=== PATIENT | male | born 1930 | race Caucasian/White ===

== ENCOUNTER 2016-10-20 23:04 | Inpatient (IN) | payer MEDICARE, OTHER ==
[~2016-10-20] VITALS: Ht 177.8 cm; Wt 97.3 kg
--- NOTE | ~2016-10-20 | DS ---
PATIENT'S NAME: JESSICA KIM [facility] AGE: 86 Y [address] ROOM: [address] [place] [id number] LOCATION: TU ADMIT DATE: 10/21/2016 Discharge Summary DISCHARGE DATE: 10/25/2016 FAMILY PHYSICIAN: Gabe Reese MD ATTENDING PHYSICIAN: Bebeto Aguillon V FINAL DIAGNOSES: 1. Right periventricular cerebrovascular accident, subacute. 2. Acute encephalopathy. 3. Essential hypertension. 4. Dementia. For details of admission, please see the history and physical dictated by Dr. Aguillon. In short, the patient was transferred here from [place] with recurrent falls and for further evaluation. LABORATORY DATA: On admit, sodium 141, most prior to discharge 142; potassium on admission 3.8, most prior to discharge 3.7; BUN on admission was 21, discharge 15; creatinine 1.2 on admission, was 1 on discharge. Cholesterol was 179, triglycerides 398, HDL 27, LDL 74. Hemoglobin A1c was 7. Cardiac enzymes were negative. Most prior to discharge hemoglobin 13.9, hematocrit 40.6, platelet count 132, white blood cell count was 10.4. RADIOLOGIC DATA: CT scan of the head on admission showed advanced changes, no acute findings. There is a question of masslike opacity in the right anterior nasal passage. There is a question of a polyp. MRI of the brain did show that he had an acute right ventricular nonhemorrhagic ischemic event and then had severe cerebral atrophy. MRA of the brain was normal. MRA of the neck was normal and had a normal vertebrobasilar system. Echocardiogram showed that his ejection fraction was 55%. He had concentric LVH and mild mitral regurg. HOSPITAL COURSE: The patient was admitted and evaluated by Neurology for speech changes and frequent falls. At first, the thought was that this is probably a TIA. Initial CT scan was negative. An MRI was done and did show that there was periventricular infarct. The patient was seen by Dr. Elmore. The patient does have baseline dementia and had acute encephalopathy on top of that. He did gradually improve during the hospital stay. We did monitor his blood sugars and covered him with sliding scale insulin through which blood sugars were very well controlled. He was on Plavix and a statin and was working with therapy. We did need to restart his blood pressure medicine because his blood pressures were elevated, and he was restarted on his home losartan dose. It was felt that he was stable for discharge and Rehab did have a bed available for him on October 25. PATIENT'S NAME: JESSICA KIM [facility] AGE: 86 Y [address] ROOM: [address] [place], [place] [address] LOCATION: TU ADMIT DATE: 10/21/2016 Discharge Summary DISCHARGE DATE: 10/25/2016 FAMILY PHYSICIAN: Gabe Reese MD ATTENDING PHYSICIAN: Bebeto Aguillon V DISCHARGE INSTRUCTIONS: Have a regular diet. Weightbearing as tolerated. PT, OT, and Speech Therapy to work with him. MEDICATIONS: 1. Dutasteride 0.5 mg daily. 2. Flomax 0.4 mg daily. 3. Lipitor 80 mg daily. 4. Plavix 75 mg daily. 5. Aricept 10 mg daily. 6. Hydrochlorothiazide 12.5 mg daily. 7. Cozaar 100 mg daily, hold if his systolic blood pressure is less than 110. 8. Namenda 5 mg daily. 9. Protonix 40 mg daily. 10. Lyrica 100 mg at bedtime. 11. Seroquel 12.5 mg at bedtime. 12. Requip 1 mg at bedtime. 13. Tylenol 650 mg every 4 hours as needed for pain and temp. 14. Seroquel 12.5 mg at bedtime as needed for agitated behavior. 15. Nitrostat 0.4 mg p.r.n. chest pain. 16. Colace 100 mg daily p.r.n. constipation. OVERALL PROGNOSIS: At discharge was good. JADIEL MCCAULEY MD LAW/modl /[id number] CC: Gabe Reese MD d: 10/26/16 0103 t: 10/26/16 1451, DISCHARGE SUMMARY
--- NOTE | ~2016-10-20 | HP ---
PATIENT'S NAME: JESSICA KIM [facility] AGE: 86 Y [address] ROOM: [facility] [place] [id number] LOCATION: [facility] ADMIT DATE: 10/21/2016 History & Physical DISCHARGE DATE: FAMILY PHYSICIAN: PHYSICIAN, UNKNOWN ATTENDING PHYSICIAN: VIKRAM FIERRO V DATE OF SERVICE: CHIEF COMPLAINT: Left lower extremity weakness. HISTORY OF PRESENT ILLNESS: This is provided by the family as well as partially extracted from neurological consultation done during code stroke. The patient is an 86-year- old male with past medical history of coronary artery disease and hypertension. The patient was admitted to the hospital in [place] approximately 10 days ago with complaints of left lower extremity weakness which resolved spontaneously. He was diagnosed with TIA and was advised to undergo further workup, but apparently that did not happen. Today, the patient developed again very similar left lower extremity weakness and a slurred speech. He is transported to [facility] ER by private vehicle when a code stroke was called. He was seen by Dr. Wyatt of Neurology who at that point appreciated very minor neurological deficits. Regardless, the patient was already considerably out of the window for tPA. CAT scan was negative. He was admitted to [facility] for observation for TIA/CVA. At this point, the patient volunteers no complaints. REVIEW OF SYSTEMS: All systems have been reviewed and negative aside from pertinent positives mentioned above. PAST MEDICAL HISTORY: Some dementia, not always oriented; essential hypertension; coronary artery disease; CABG. FAMILY HISTORY: Reviewed and is noncontributory due to advanced age. SOCIAL HISTORY: Negative for any ongoing toxic habits. 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 CURRENT MEDICATIONS: 1. Aspirin 81. 2. Donepezil 5. PATIENT'S NAME: JESSICA KIM [facility] AGE: 86 Y [address] ROOM: [address] [place], [place] [address] LOCATION: [facility] ADMIT DATE: 10/21/2016 History & Physical DISCHARGE DATE: FAMILY PHYSICIAN: PHYSICIAN, UNKNOWN ATTENDING PHYSICIAN: VIKRAM FIERRO V 3. Dutasteride/tamsulosin. 4. Hydrochlorothiazide. 5. Losartan. 6. Pregabalin. 7. Requip. 8. Sertraline. PHYSICAL EXAMINATION: VITAL SIGNS: Blood pressure 183/87, respirations 16, pulse is 54, temperature 97.5. GENERAL APPEARANCE: A well-developed, well-nourished, elderly male, in no acute distress. NEUROLOGIC: A detailed neurological exam only produced significant findings that the patient is alert and oriented to name only. He is not aware of the date which is baseline nor the place which is not baseline, though it should be mentioned that it is 2:30 in the morning. EYE: Exam shows pupils are equal and reactive to light. LYMPHATIC: Exam shows no cervical lymphadenopathy. ENDOCRINE: Exam shows no thyromegaly. LUNGS: Clear to auscultation in all patel. HEART: Rate is bradycardic and regular with no appreciable murmurs, gallops, or rubs. ABDOMEN: Soft, nontender, nondistended. : Reveals no costovertebral angle tenderness. VASCULAR: 2+ pedal pulses. MUSCULOSKELETAL: No muscle or joint abnormalities. SKIN: Warm and dry. PSYCHIATRIC: Reveals slightly confused male with appropriate behaviors but slightly slowed cognition. LABORATORY DATA: Review of study shows an unremarkable basic metabolic profile and unremarkable CBC. Unremarkable CAT scan. EKG shows sinus bradycardia, 58 beats per minute with left axis deviation. ASSESSMENT AND PLAN: This is an 86-year-old male who will be admitted for observation for cerebrovascular accident versus transient ischemic attack. The patient will be continued on IV fluids as recommended by the Neurology consultation. We will change his aspirin to Plavix as recommended by Neurology consultation. We will conduct a standard cerebrovascular accident workup with MRIs and carotid Dopplers and 2-dimensional echocardiogram. We will check his lipids. Additional management will depend on subsequent course. Hypertension. At this point, we will opt for a period of permissive PATIENT'S NAME: JESSICA KIM [facility] AGE: 86 Y [address] ROOM: [address] [address] LOCATION: [facility] ADMIT DATE: 10/21/2016 History & Physical DISCHARGE DATE: FAMILY PHYSICIAN: PHYSICIAN, UNKNOWN ATTENDING PHYSICIAN: VIKRAM FIERRO V hypertension. Dementia. Continue with donepezil. Benign prostatic hypertrophy as extracted from his medications. We will continue dutasteride and tamsulosin. Additional management will depend on clinical course. Time dedicated to this patient's encounter is 25 minutes. MD JOSE L WALLACE/modl /[id number] D: [id number] T: [id number] HISTORY & PHYSICAL
--- NOTE | ~2016-10-20 | ECHO ---
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 Estimated ejection fraction of 55% with moderate concentric left ventricular hypertrophy and internal dimension.WMAs cannot be confidently commented on. Mild mitral regurgitation. There is mild aortic regurgitation. Mild tricuspid regurgitation Estimated PA systolic pressure: 35 mmHg. Mild pulmonic valve regurgitation. Increased RA pressures. At least mildly dilated ascending aorta. Procedure Type of Study TTE procedure:2D Echocardiogram. Procedure Date Date: 10/21/2016 Start: 08:46 AM Study Location: Inpatient Portable Technical Quality: Fair Appropriate Use Criteria: 9 Patient Status: Routine HR: 63 bpm BP: 188/80 mmHg M-Mode/2D Measurements LV Diastolic Dimension: 5.29 cm LV Systolic Dimension: 3.68 cm LV Septum Diastolic: 1.33 cm LV PW Diastolic: 1.26 cm AO Root Dimension: 3.1 cm Cardiac Output: 3.76 l/min LA Dimension: 3.3 cm EF Estimated: 50 % LVOT: 2 cm LVOT VTI: 19 cm LV Stroke volume: 59.66 ml Doppler Measurements AV Peak Velocity: 1.32 m/s MV Peak E-Wave: 0.74 m/s AV Peak Gradient: 6.97 mmHg MV Peak A-Wave: 1.04 m/s AV Mean Gradient: 5 mmHg MV E/A Ratio: 0.71 LVOT Peak Velocity: 1.05 m/s MV P1/2t: 52 msec AV P1/2t: 491 msec TR Gradient:25 mmHg PV Peak Velocity: 1.1 m/s Estimated RAP:10 mmHg PV Peak Gradient: 4.84 mmHg Estimated RVSP: 35 mmHg Estimated PASP: 35 mmHg E' Septal Velocity: 0.05 m/s A' Septal Velocity: 0.1 m/s Findings Left Ventricle Moderate concentric left ventricular hypertrophy with normal internal dimension.LVEF:55%.WMAs cannot be confidently commented on. Right Ventricle Poorly visualized RV in apical view Left Atrium Normal left atrial size. Right Atrium Normal right atrial size. The right atrium is mildly dilated. IVC measures 2.12cm Mitral Valve Mild mitral regurgitation. Aortic Valve There is mild aortic regurgitation. Tricuspid Valve Mild tricuspid regurgitation Estimated PA systolic pressure: 35 mmHg. Pulmonic Valve Mild pulmonic valve regurgitation. Pericardial Effusion No evidence of pericardial effusion. Miscellaneous At least mildly dilated ascending aorta. Pleural Effusion No evidence of pleural effusion. Signature dtt: Oly Carmona dtd: 10/21/16 0846 Physician Self Edit
--- NOTE | ~2016-10-20 | CON ---
PATIENT'S NAME: JESSICA KIM [facility] AGE: 86 Y [address] ROOM: [place] [address] LOCATION: TU ADMIT DATE: 10/21/2016 Consultation DISCHARGE DATE: FAMILY PHYSICIAN: Gabe Reese MD ATTENDING PHYSICIAN: VIKRAM FIERRO V REFERRING PHYSICIAN: Valentin Elmore MD Consult for Dr. Fierro, hospitalist. HISTORY OF PRESENT ILLNESS: This pleasant, 86-year-old gentleman, is referred for rehab, possible admission and also evaluation. He was admitted on 10/21 with left lower extremity weakness and some slurring of speech of sudden onset about 10 years and days ago, which has resolved and reoccurred again. Had a CT scan which was negative for any abnormality except possible for a small lacunar infarct. As the present time, he is alert, able to understand, express himself. However, he is not very able to remember and is not well oriented to his surrounding and time. Requires minimum assistance to cuing. He is slow with answering, but proper and cued. No facial droop at the present time. No visual cut. Can move all four. He is slightly less coordinated with the left upper and lower extremity. Very little decrease in strength detected in the left upper extremity and left lower extremity. Deep tendon reflexes are present and equal throughout. So far, he has good bowel and bladder control. He can swallow without difficulty, both fluids and solids. His voice is clear and not wet. Vitals: Blood pressure 154/66, temperature 98.1, pulse of 57, and respirations 16. He is 5 feet 10 inches tall and weighs 101.2 kg. MEDICATIONS: He is on the following medications: 1. Plavix. 2. Lipitor. 3. HydroDIURIL. 4. Protonix. 5. Tylenol. 6. Zoloft. 7. Requip. 8. Lyrica. PATIENT'S NAME: JESSICA KIM [facility] AGE: 86 Y [address] ROOM: [address] [address] LOCATION: TU ADMIT DATE: 10/21/2016 Consultation DISCHARGE DATE: FAMILY PHYSICIAN: Gabe Reese MD ATTENDING PHYSICIAN: KAGANAS,VIKRAM V 9. Flomax. 10. Avodart. 11. Aricept. ASSESSMENT AND PLAN: He is going to be started on PT, OT, Speech. I will watch him carefully. If he continues to make good progress, he can go home and be followed with his family physician; however, I want to follow on him in about 2 weeks after discharge if that is possible. Meanwhile, he should not drive and/or operate any mechanical device. We will keep watching him at the present time. If he qualifies, I will be happy to take him for intensive rehabilitation of about 2 weeks, aiming to discharge on modified independence. All the above was explained to his son. He verbalized understanding, in agreement. MD MARISEL HATCH/modl /[id number] d: 10/21/161941 t: 10/22/16 08, CONSULTATION REPORT
--- NOTE | ~2016-10-20 | ER ---
PATIENT'S NAME: JESSICA KIM [facility] AGE: 86 Y [address] ROOM: [place] [address] LOCATION: [facility] ADMIT DATE: 10/21/2016 ER/Outpatient Report DISCHARGE DATE: FAMILY PHYSICIAN: PHYSICIAN, UNKNOWN ATTENDING PHYSICIAN: VIKRAM FIERRO V Time of Arrival: 2304 hours. Time of Evaluation: 2305 hours. IDENTIFICATION: An 86-year-old male. CHIEF COMPLAINT: Weakness. HISTORY OF PRESENT ILLNESS: The patient is an 86-year-old male, who has left-sided weakness that started around 4:00 p.m. He fell at 1800 hours with no injuries from the fall. He had a similar episode last week and was evaluated in [place]. Everything was normal at that time. His symptoms had resolved, and he was recommended to have an outpatient MRI, but did not get one yet. On arrival here, the patient is stating that his symptoms are a little bit better, and he has had some left- sided weakness. He denies headache and no other complaints. No numbness or tingling. No previous history of stroke. PAST MEDICAL HISTORY: ALLERGIES: NO KNOWN DRUG ALLERGIES. CURRENT MEDICATIONS: 1. Hydrochlorothiazide 12.5 mg daily. 2. Losartan 100 mg daily. 3. Aspirin 81 mg daily. 4. Juice Plus b.i.d. 5. Sertraline 150 mg daily. 6. Donepezil 5 mg daily. 7. Lyrica 100 mg daily. 8. Ropinirole 1 mg daily. 9. Jordana. MEDICAL PROBLEMS: Hypertension; allergic rhinitis; hyperlipidemia; history of TIA in 2000 and then 1 week ago; lumbar spinal stenosis; osteoarthritis; cholelithiasis, status post cholecystectomy; depression; coronary artery disease, status post PATIENT'S NAME: JESSICA KIM [facility] AGE: 86 Y [address] ROOM: [place] [address] LOCATION: [facility] ADMIT DATE: 10/21/2016 ER/Outpatient Report DISCHARGE DATE: FAMILY PHYSICIAN: PHYSICIAN, UNKNOWN ATTENDING PHYSICIAN: VIKRAM FIERRO V 4-vessel CABG; bradycardia; sleep apnea; neuropathy; and dementia. PRIOR SURGERIES: Cholecystectomy and 4-vessel CABG. SOCIAL HISTORY: The patient is , lives in [place] with his . Tobacco use, denies. Alcohol use, denies. Drug use, denies. REVIEW OF SYSTEMS: All systems reviewed and negative other than what is noted in the HPI. FAMILY HISTORY: Positive for coronary artery disease and stroke. PHYSICAL EXAMINATION: VITAL SIGNS: Blood pressure 178/93, weight 95.1 kg, pulse 61, respirations 16, temperature 97, and saturations 95% on room air. GENERAL: An 86-year-old male, in no acute distress. HEENT: Head: Normocephalic, atraumatic. Ears: TMs translucent, both ears. Nose: Mucosa pink. No lesions or drainage. Mouth: No lesions. Pharynx benign. NECK: Supple. No lymphadenopathy. LUNGS: Clear to auscultation. HEART: Regular rate and rhythm. No murmur, rub, or gallop. ABDOMEN: Bowel sounds present. Soft, nondistended. No hepatosplenomegaly. No palpable masses. Nontender. SKIN: [place], warm, and dry. No lesions or rashes noted. NEURO: The patient is alert. He is oriented to person, place, and time. Did have a little confusion on the month. Cranial nerves 2 through 12 grossly intact. Motor strength 5/5 throughout. Sensation is intact to light touch. NIH stroke scale score is 2. No lower extremity edema. No calf tenderness. LABORATORY DATA AND X-RAYS: EKG: Normal sinus rhythm at 58 beats per minute. No acute ST elevation or depression. Poor anterior R-wave progression. Hemoglobin 14.5, hematocrit 42.6, platelets 160, white count 12.4 with a normal differential. INR 1.04. Sodium 141, potassium 3.8, chloride 108, CO2 of 27, BUN 21, creatinine 1.2, blood sugar 91. Troponin I less than 0.040. Head CT, chronic cerebral disease with no acute findings per [facility]. EMERGENCY DEPARTMENT COURSE: Stroke Alert was called when the patient arrived to the ER. Dr. Wyatt, neurologist, also presented and evaluated the patient. PATIENT'S NAME: JESSICA KIM [facility] AGE: 86 Y [address] ROOM: [place] [address] LOCATION: [facility] ADMIT DATE: 10/21/2016 ER/Outpatient Report DISCHARGE DATE: FAMILY PHYSICIAN: PHYSICIAN, UNKNOWN ATTENDING PHYSICIAN: VIKRAM FIERRO V IMPRESSION AND PLAN: 1. Small cerebrovascular accident, low NIH stroke scale score, and symptoms started greater than 4.5 hours prior to arrival. Plan for admission per Dr. Fierro, hospitalist with Dr. Wyatt, neurologist, providing consultation. Dr. Wyatt did evaluate the patient in the emergency room as well as Dr. Fierro. The patient remained hemodynamically stable throughout his stay here and his symptoms remained unchanged. Repeat blood pressure was 152/93. 2. Hypertension. 3. Mild dementia. 4. Bradycardia. 5. Known coronary artery disease. MD ELDER LOPEZ/jose ml /[id number] P d: 10/21/1605 t: 10/31/16 0630, OUTPATIENT REPORT
--- NOTE | ~2016-10-20 | CON ---
PATIENT'S NAME: JESSICA CLARK [facility] AGE: 86 Y [address] ROOM: [id number] [place], [place] [address] [place] [facility] [place] DATE: 10/21/2016 Consultation DISCHARGE DATE: FAMILY PHYSICIAN: PHYSICIAN, UNKNOWN ATTENDING PHYSICIAN: VIKRAM FIERRO V DATE OF CONSULTATION: 10/20/2016 REFERRING PHYSICIAN: Valentin Elmore MD TIME SEEN: 11:20 p.m. HISTORY OF PRESENT ILLNESS: I was called down to the emergency room to evaluate Mr. Clark who is an 86- year-old male patient who arrived by car, taken here by his son. The son noticed that his dad came out of his pickup truck today when [place] and he had difficulty in stepping down and ambulating on his left side. The father was asked to go home as he felt weak. He did not feel particularly dizzy or nauseous, but there was a suggestion by the family that he had a bit of slurring of speech, which is difficult to confirm. Apparently, he had the symptoms of some left-sided weakness at around 4:00 p.m., but he was finally taken to the emergency room here this evening at around 11:00 p.m. By the time he got here, he had only a subtle sign of some drift in the left lower extremity, which may actually not be acute based upon the knowledge that he had acute onset of left leg weakness 10 days ago. The story goes that 10 days ago, he presented to [facility] there, where he had left-sided weakness mostly in the left leg. Apparently, the weakness lasted a few hours, possibly the course of the day, then seemed to get better. A CAT scan of the brain was performed and showed no evidence of an evolving stroke and the patient was sent home to be followed up with his primary medical doctor in [place]. The plan was to get an MRI. Apparently, he never got the MRI for some reason, but he apparently did get a carotid ultrasound workup. He seemed to be doing fairly well during the week and did not have weakness with his gait, but again the son said that he suddenly had similar weakness on his left leg this afternoon. When seeing the patient, he was alert and oriented. He appeared to be tired and a bit fatigued, but he answered all questions appropriately. I did not appreciate any slurring of his speech. He did not have any visual field deficits, but no focal facial droop was seen. He was taken to CAT scan, which showed extensive white matter ischemic changes of chronicity associated likely with his age. Some of the subcortical regions does show potentially some silent strokes in the past and some evidence of perhaps some very small lacunar infarcts. I saw no evidence of an evolving area of a stroke, but there were again some areas of confluent white matter changes associated with small vessel disease. Certainly, there was no evidence of recent territorial stroke. There was overall extensive PATIENT'S NAME: JESSICA CLARK [facility] AGE: 86 Y [address] ROOM: [address] [address] [place] [facility] [place] DATE: 10/21/2016 Consultation DISCHARGE DATE: FAMILY PHYSICIAN: PHYSICIAN, UNKNOWN ATTENDING PHYSICIAN: VIKRAM FIERRO V atrophy of the brain, which likely goes along with the patient's age and some lkcb-hj-icoevbde dementia. PRIOR MEDICAL HISTORY: He has dementia ixuc-dw-nreycllx with short-term memory deficits. He also has depression. He has coronary artery disease, status post a CABG approximately 10 years ago. SOCIAL HISTORY: He does not smoke. He does not drink alcohol. He is for 66 years. He has 4 children. 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 FAMILY HISTORY: His mother and father in their 70s, unknown cause. His brother of stroke in his 70s. He does not have any further knowledge of family members. REVIEW OF SYSTEMS: The patient presents with normal mental status. He was a bit tired, but I did not appreciate any facial droop or slurring of his speech. He complained about some subtle weakness of his left leg this afternoon, which hampered his walking ability. He was taken to the emergency room now for evaluation. PHYSICAL EXAMINATION: VITAL SIGNS: His blood pressures were slightly elevated to the 150 systolic range. He was noted to be in sinus bradycardia. He did not appear to be in any acute distress. His vital signs revealed a pulse of 54, sinus bradycardia, respiration rate 16, blood pressure 159/87, temperature is afebrile, pulse oxygenation 95% on room air. NEUROLOGICAL: Cranial nerves 2 through 12 was intact. I did not appreciate any facial droop. There was normal facial symmetry and there was normal facial sensation in V1 through V3. Uvula and palate were midline. Testing of his eye movements was normal and visual patel did not display any visual field cut. NECK: Supple on flexion and extension. I did not appreciate any pronator drift. His power in his bilateral upper extremities is 5/5. In the lower extremities, he had good power, but a subtle asymmetry in the left leg, where there was a bit of drift, which may not be new. On zzhtrb-dw-fipz with eyes closed, he had a bit of dysmetria in the left finger, but this was very subtle. Sensory exam was normal to light touch and to sharp touch, but he had diminished ability to sense double simultaneous stimulation in the lower extremities when testing left and right. Otherwise, no hard evidence for sensory cortical neglect. GAIT: The patient was not ambulated presently due to acute nature of his presentation. PATIENT'S NAME: JESSICA CLARK [facility] AGE: 86 Y [address] ROOM: [place] [address] [place] [facility] [place] DATE: 10/21/2016 Consultation DISCHARGE DATE: FAMILY PHYSICIAN: PHYSICIAN, UNKNOWN ATTENDING PHYSICIAN: VIKRAM FIERRO V IMPRESSION: Mr. Clark had some developed weakness this afternoon in his left leg. This may be some recrudescence of some prior weakness associated with a small stroke that is not evident on the CAT scan. Let us give him IV fluids. Keep his blood pressure up acutely. However, there is very little evidence that this is an acute stroke syndrome, thus after he receives fluid during the course of the evening, we could put him on his antihypertensive medication. Because of the history of likely a possible small lacunar stroke, let us change his aspirin to Plavix 75 mg daily. We will also place him on a cholesterol-lowering drug of Lipitor 80 mg daily. Physical Therapy will see the patient in the a.m. for ambulation evaluation. I would like to get an MRI with MRA of the brain for any evidence that he had a subacute stroke, perhaps 10 days ago. Diffusion-weighted imaging would remain positive for at least down to 3 weeks. The case was discussed with the ER physician. MD THUAN MIKE/modl /[id number] d: 10/21/16 0502 t: 10/31/16 2150, CONSULTATION REPORT
[2016-10-20 23:22] LABS: BASOPHIL # 0.1 K/uL (0.0-0.2); BASOPHIL % 0.5 %; EOSINOPHIL # 0.2 K/uL (0.0-0.5); EOSINOPHIL % 1.7 %; HEMATOCRIT 42.6 % (33.0-50.0); HEMOGLOBIN 14.5 g/dL (11.0-16.0); IMMATURE GRANULOCYTE # 0.1 K/uL (0.0-0.3); IMMATURE GRANULOCYTE % 0.4 %; LYMPHOCYTE # 4.7 K/uL (0.8-4.0); LYMPHOCYTE % 37.5 %; MCH 31.6 pg (27.0-34.0); MCV 92.8 fl (83.0-98.0); MONOCYTE # 0.8 K/uL (0.0-1.0); MONOCYTE % 6.6 %; MPV 10.8 fl (9.4-12.4); NEUTROPHIL # (ANC) 6.6 K/uL (1.4-9.0); NEUTROPHIL % 53.3 %; NRBC % 0 /100WBC (0-0.00); PLATELET COUNT 160 K/uL (150-450); WBC 12.4 K/uL (4.0-11.0)
[2016-10-20 23:23] LABS: RBC 4.59 M/uL (3.50-5.50)
[2016-10-20 23:33] LABS: INR - (THERAPEUTIC) 1.04 (0.92-1.07); PROTIME 10.9 SECONDS (9.8-11.4); PTT 26 SECONDS (25-32)
[2016-10-20 23:35] LABS: ALBUMIN 3.7 gm/dL (3.5-5.0); ANION GAP 9.8 (10.0-19.0); CALCIUM 8.3 mg/dL (8.5-10.5); CREATININE 1.2 mg/dL (0.6-1.3); PHOSPHORUS 2.5 mg/dL (2.5-4.9)
[2016-10-21 00:15] LABS: POTASSIUM 3.8 mMol/L (3.7-5.1)
--- NOTE | 2016-10-21 02:06 | NUR ---
A 86 YEAR OLD WHITE MALE ADMITTED FROM ER TO ROOM 3218 FOR POSSIBLE STROKE. A STROKE ALERT WAS CALLED. CAME IN FOR LEFT SIDED WEAKNESS. HAS NO H/A, DIZZINESS, LIGHT HEADEDNESS, SOB, NO NAUSEA. ALERT TO NAME AND PLACE, BIRTHDAY AND EVENTS WHAT IS GOING ON. RECGONIZED FAMILY. EXPERIENCES MILD DEMENTIA. MOVES ALL FOUR EXTREMITIES, HAND GRASPS STRONG BILATERALLY. WINIFRED REACTIVE. HAD PRIOR COMING IN TO HOSPTIAL HAD SLURRING OF SPEECH BUT IS RESOLVED. IV FLUIDS NORMAL SALINE INFUSING.
[2016-10-21] MEDS ORDERED: COZAAR100 MG PO (02:07)
[2016-10-21] MEDS ORDERED: ASPIR 8181 MG PO (02:07)
[2016-10-21] MEDS ORDERED: HYDROCHLOROTH12.5 MG PO (02:07)
[2016-10-21] MEDS ORDERED: ZOLOFT100 M1 PO (02:09)
[2016-10-21] MEDS ORDERED: ROPINIROLE HCL1 MG PO (02:11)
[2016-10-21] MEDS ORDERED: JALYN 0.5-0.41 EACH PO (02:13)
[2016-10-21] MEDS ORDERED: LYRICA 100MG C100 MG PO (02:14)
[2016-10-21] MEDS ORDERED: ARICEPT 5 MG5 MG PO (02:15)
[2016-10-21] MEDS ORDERED: ULTRAM50 MG PO (10:45)
[2016-10-21] MEDS ORDERED: AMOXICILLIN500 MG PO (10:46)
[2016-10-21] MEDS ORDERED: NITROGLYCERIN0.4 MG SL (10:46)
[2016-10-21] MEDS ORDERED: COLACE100 MG PO (10:47)
[2016-10-21] MEDS ORDERED: JUICE PLUS PO (10:47)
--- NOTE | 2016-10-21 15:19 | NUR ---
Patient is alert and oriented to place and person, but not time. Was negative on the CAM assessment. Equal strength to both sides. Follow commands approrialtely. PERRLA. Does have mild dementia. Cardiac diet. Up with 1PA. L)wrist IV, fluids started. NS@75/hr. MRI scheduled for today. Neuro checks and vitals every 4 hours. Ultra high fall risk. Haz drug precautions. Denies pain. Tele on. Accuchecks AC/HS. Transferring to Neuro Trauma to [facility] after his MRI. Report given to Skylar ROJAS on [facility]. Cooperative with [facility].
--- NOTE | 2016-10-21 15:45 | NUR ---
Introduced self/role to patient, his Mariah and daughter Aarti. Plan is home, they are really not ready to consider [facility] even. I suggested to them to at least get their name on a waiting list if there is one at [facility] and they can always pass up a room if offered it while staying on the waiting list. C from [place] was recently started, a Yoly was coming to the home. I will contact [facility] and send them updates. Aarti was thinking of hiring care givers during the day. She lives with them and cares for them at night. Provided her the list of caregiver companies in this area. Also mentioned [facility] [employer] [facility] as possible resources. Denied any other needs. They understand patient is observation status. Planning discharge home possibly tomorrow. I added my name to his marker board and will follow up with them tomorrow. 1615 Called Sandra with [facility]. Gave her a verbal update. Faxed information to [phone].
--- NOTE | 2016-10-21 19:57 | NUR ---
Significant Event: a/o to person. when asked where he is at replied "right here". month? "november". age "87". speech is very slightly slurred at times. droop left side of mouth. dullness to left lower extremity. NIHSS=7. IV to left wrist with NS infusing at 75ml/hr. accuchecks ac/hs. ambualtes with walker/gait belt and one assist. incontinent of urine at times. missing dental partial and needs to choose soft foods. cardiac diet.
[2016-10-22 05:34] LABS: BASOPHIL % 0.2 %; EOSINOPHIL # 0.2 K/uL (0.0-0.5); EOSINOPHIL % 1.7 %; HEMATOCRIT 40.6 % (33.0-50.0); HEMOGLOBIN 13.9 g/dL (11.0-16.0); IMMATURE GRANULOCYTE % 0.4 %; LYMPHOCYTE # 3.9 K/uL (0.8-4.0); LYMPHOCYTE % 37.1 %; MCH 31.8 pg (27.0-34.0); MCHC 34.2 gm/dL (32.0-36.5); MCV 92.9 fl (83.0-98.0); MONOCYTE # 0.5 K/uL (0.0-1.0); MPV 10.7 fl (9.4-12.4); NEUTROPHIL # (ANC) 5.8 K/uL (1.4-9.0); NEUTROPHIL % 55.6 %; NRBC % 0 /100WBC (0-0.00); PLATELET COUNT 132 K/uL (150-450); RBC 4.37 M/uL (3.50-5.50); RDW-CV 13.9 % (11.9-14.6); WBC 10.4 K/uL (4.0-11.0)
--- NOTE | 2016-10-22 05:44 | NUR ---
Significant Event: Patient, when cooperative, is alert to self,. Confused and combative this shift. Forgetful of town. Disoriented to time. Perrl. Denies N/T. Moves all extremities spontaneously and to command. LLE weaker than right, dullness to LLE. Slight left side mouth droop. Has been hypertensive at times. Lungs clear and dim throughout. Cardiac diet. Incontinent at times. Transfers 1 assist for most of shift, but toward the end of shift would not cooperate and stand for nurses. PIV to left forearm running NS at 75 ml/hr. Pako wrap applied. ACHS accuchecks. Follow up:Alarms at all times. Impulsive.
[2016-10-22 05:47] LABS: ALBUMIN 3.3 gm/dL (3.5-5.0); ANION GAP 10.7 (10.0-19.0); BLOOD UREA NITROGEN 15 mg/dL (6-24); CALCIUM 8.2 mg/dL (8.5-10.5); CHLORIDE 109 mMol/L (96-110); CO2 26 mMol/L (22-32); ESTIMATED GFR (MDRD EQUATION) > 60; MAGNESIUM 2.2 mg/dL (1.8-2.6); POTASSIUM 3.7 mMol/L (3.7-5.1); SODIUM 142 mMol/L (135-145)
--- NOTE | 2016-10-22 10:45 | NUR ---
Introduced self/role to patients son Larry. If patient would get a qualifying stay would like him to go to [facility] in [place]. [address] Nguyen changed to inpatient yesterday evening. Called Amelia Vo in to confirm and yes he is inpatient. [facility] called, updated them on status change and possible SNF placement. Called patients daughter Aarti #[phone]. I will put a referral into [facility] Tuesday first thing. I asked them to consider who their 2nd choice may be in the event [facility] has no rooms or can't accept. Options could be the 4 homes in [place] or [place] would be close to [place]. Voiced understanding. Encourage someone to maybe go check them out over the weekend.
--- NOTE | 2016-10-22 16:25 | NUR ---
Significant Event: Patient is drowsy this morning. does open eyes spontaneously and ambulates to bathroom with walker/gait belt and one assist. oriented to person. not oriented to month/age. NIHSS=5 for not knowing month/age, minor left mouth droop, left leg drift and mild sensory impairment to left lower extremity. speech clear. no aphasia. Does refuse breakfast stating too tired. takes meds whole with out noted difficulty swallowing. does eat 75% of lunch. incontinent/continent of urine. large bowel movement this shift. IV to left wrist with normal saline infusing at 75ml/hr. tele with sinus rhthm. accuchecks ac/hs. cardiac diet. increased alertness noted by mid aftn. no agitation/combativeness noted this shift.
--- NOTE | 2016-10-23 07:27 | NUR ---
Significant Event: Patient Alert to self. Disoriented to time/place. Perrla. Denies N/T. Dullness to LLE. Moves all extremities spontaneously. Follows commands. Rested much better this shift. Lungs clear and dim on room air. Bowel sounds active. Voids per bathroom. 1 Assist, GB/walker. Regular diet. IV to left forearm running NS at 75 ml/hr. HTN this shift. Takes meds whole with water Follow up:
--- NOTE | 2016-10-23 17:22 | NUR ---
Significant Event: a/o to name, not month, place, age, . equal strength throughout. NIHSS=3. does have slight left mouth droop. ambulates with walker/gait belt and one assist. takes meds whole. cardiac diet. accuchecks ac/hs. continent of bowel and bladder. plan- SNF placement.
--- NOTE | 2016-10-24 03:45 | NUR ---
Significant Event: Alert to self, unsure of age month, year or location, states he's in a hospital. PERRLA 3mm brisk. Denies dullness or N/T. NIHSS4; RLE drift, RLE ataxia with mumbling speech. Equal strong strength upper extremities. Equal moderate strength to bilateral lower extremiteis, 1+ edema to legs. Systolic 150's, HR 50-60's. L.S. clear and diminished throughout, on RA. B.S. active, last BM 10/23. Incontinent of urine at times. PIV L) anterior forearm infusing NaCl 75mL/hr. Denies pain. Accuchecks AC/HS, no coverage needed. Ambulates 1PA walker/gait belt. Takes medications whole with water, cardiac diet. Follow up: Alarms at all times, NIHSS QShift. Neuro checks. Plan for SNF placement Tuesday?
--- NOTE | 2016-10-24 17:49 | NUR ---
Significant Event: alert. oriented to name. significant hx of dementia. NIHSS=3 for not knowing month or age and ataxia to RLE. no c/o or s/s of pain. equal strength throughout. tele with sinus zaina. ambulates with walker/gait belt and one assist. slightly unsteady. continent/incontinent of urine. large bowel movement this shift. IV to left forearm saline locked. Accuchecks discontinued. new order for cozaar 100mg po daily initial dosed. plan- SNF placement.
--- NOTE | 2016-10-25 02:28 | NUR ---
Significant Event: Alert to self and . Unsure of month/year, location or age. NIHSS 2. PERRLA 3mm brisk. Systolic 140-170's, HR 50-60's, 1+ trace edema to lower extremiteis. Equal strong strength to upper extremities, equal moderate strength to lower extremities. Denies N/T, DURAN or blurred vision. Forgetful of limitations, bed/chair alarms on at all times, portable telemetry. L.S. clear and diminished throughout on RA. B.S. active, last BM 10/24. Incontinent of urine at times. PIV L) anterior forearm SL'd. Takes medications whole with water, no difficulties. Cardiac diet. Ambulates 1PA with walker/GB. Follow up: SNF placement, NIHSS Qshift
--- NOTE | 2016-10-25 08:00 | NUR ---
Called Sonya on [facility]. They can take tomorrow. Called [facility] and notified them. [phone] Sonya called back, would like to take today if possible? I will check with family and Sonya will call [facility]. Called Larry he didn't have concerns but asked me to call his sister Aarti. Called Aarti. She was fine with [facility]. 834 Called [facility] and spoke to charge nurse Jailyn. Will start getting the paperwork done and she will contact the doctor. [phone] Confirmed with Sonya that family was good with it but now are waiting for discharge orders. Will have [facility] call her when ready to go. [phone] Called and updated [facility] as they were expecting him to go home. 934 Jailyn didn't need anything further from care management, will call [facility] when ready. Brooke Thomas aware of discharge plans.
--- NOTE | 2016-10-25 09:08 | NUR ---
Patient alert to name and date of . Equal strength throughout. NIHSS 2. Follows commands. Can be forgetful/impulsive at times. VSS. HTN. Room air with sats in the mid 90s. LS clear and diminished. Incontinent of urine at times. BS active X4. No BM this AM. Cardiac diet. Feeds self. Verbal cues to take pills and keep on task. Scab to right arm. Dry skin. No IV access. 1 assist with gaitbelt and walker. at bedside. Pleasant and cooperative with cares. Patient to transfer to [facility] this AM.
--- NOTE | 2016-10-25 11:09 | NUR ---
Significant Event: Please refer to transfer note. Patient transferred to [facility] around 1110 via wheelchair and transport team. Report called and given to BOB Ramon. Follow up:
[2017-01-31] MEDS ORDERED: PLAVIX75 MG PO (09:57)
[2017-01-31] MEDS ORDERED: HYDRODIURIL25 MG PO (09:58)
[2017-01-31] MEDS ORDERED: DONEPEZIL HCL10 MG PO (09:58)
[2017-01-31] MEDS ORDERED: COZAAR100 MG PO (09:59)
[2017-01-31] MEDS ORDERED: K-TAB ER20 MEQ PO (10:00)
[2017-01-31] MEDS ORDERED: MIRALAX17 GM PO (10:00)
[2017-01-31] MEDS ORDERED: VITAMIN D5000 UNIT PO (10:01)
[2017-01-31] MEDS ORDERED: ROPINIROLE HCL1 MG PO (10:02)
[2017-01-31] MEDS ORDERED: AVODART0.5 MG PO (10:02)
[2017-01-31] MEDS ORDERED: DULCOLAX10 MG R (10:03)
[2017-01-31] MEDS ORDERED: COLACE100 MG PO (10:03)
[2017-01-31] MEDS ORDERED: MILK OF MAGN400 ML PO (10:04)
[2017-01-31] MEDS ORDERED: TYLENOL325 MG PO (10:06)
[2017-01-31] MEDS ORDERED: AQUAPHOR TOP (10:10)
[2017-01-31] MEDS ORDERED: [UNRECOGNIZED DRUG - OTHER] TOP (10:10)
[2017-01-31] MEDS ORDERED: ZYPREXA2.5 MG PO (10:10)
[2017-01-31] MEDS ORDERED: ATIVAN 0.5MG0.5 MG PO (10:11)
[2017-01-31] MEDS ORDERED: BUSPIRONE HCL15 MG PO (10:13)
[2017-01-31] MEDS ORDERED: ZOLOFT100 MG PO (10:13)
[2017-01-31] MEDS ORDERED: OXYGEN M-15 INH (10:16)
[2017-01-31] MEDS ORDERED: JUICE PLUS FRUIT PO (10:34)
[2017-01-31] MEDS ORDERED: JUICE PLUS VEGETABLE PO (10:35)
== END 2016-10-25 11:13 | DRG 64 ==
LOC: GMED 23:04 → GNTU 10-21 00:37 → GMSU 10-21 00:37 → GNTU 10-21 00:37
PROVIDERS: Physician Assistant; Physician Assistant Medical; ADMIT Specialist
DX: I63.9 Cerebral infarction, unspecified (principal); G93.40 Encephalopathy, unspecified; G81.94 Hemiplegia, unspecified affecting left nondominant side; G30.9 Alzheimer's disease, unspecified; F02.81 Dementia in other diseases classified elsewhere, unspecified severity, with behavioral disturbance; E11.9 Type 2 diabetes mellitus without complications; I25.10 Atherosclerotic heart disease of native coronary artery without angina pectoris; Z95.1 Presence of aortocoronary bypass graft; Z79.82 Long term (current) use of aspirin; F32.9 Major depressive disorder, single episode, unspecified; N40.0 Benign prostatic hyperplasia without lower urinary tract symptoms; G25.81 Restless legs syndrome; I10 Essential (primary) hypertension
CPT/HCPCS: A9577; G8978; G8979; G8980; G8987; G8988; G8989; G9168; G9169; G9170; J7030

== ENCOUNTER 2016-10-25 11:26 | Inpatient (IN) | payer MEDICARE, OTHER ==
[~2016-10-25] VITALS: Ht 177.8 cm; Wt 91.4 kg
--- NOTE | ~2016-10-25 | CON ---
PATIENT'S NAME: NII KIM [facility] AGE: 86 Y [address] ROOM: [place] [address] LOCATION: [facility] ADMIT DATE: 10/25/2016 Consultation DISCHARGE DATE: 11/17/2016 FAMILY PHYSICIAN: Gabe Reese MD ATTENDING PHYSICIAN: Valentin Quezada DATE OF CONSULTATION: 11/16/2016 REFERRING PHYSICIAN: Bebeto Aguillon MD Team members reporting include: Dr. Quezada; Sonya Napoles, manager social responsibility; Pennie Espinoza, RN; Belén Spencer, PT; Michelle Rdz, PT; Indiana Cooney, OT; Bernarda Villalpando, Speech Therapy; Silvina Daniel, therapeutic rec; and Sister Cheryl Gtz, Pastoral Care. CURRENT STATUS: Nii is an 86-year-old male, admitted to our inpatient rehabilitation unit following a CVA. The patient has a history of dementia. The patient is incontinent of bladder at times. He is on a cardiac mechanical soft diet. Taking chocolate Magic Cup b.i.d. and Ensure pudding q. day. Refuses supplements at times. The patient does have difficulty with following cues. He can transfer sit to supine and supine to sit, standby assistance and maximal cues. Sit to stand, contact guard assistance to moderate assistance; bed to chair, minimal assistance with handover and hand guiding. He can walk 150 feet at minimal assistance with moderate to maximal cues very inconsistent. The patient has difficulty climbing stairs. He has met 0/8 long-term PT goals. The patient can dress his upper body at standby; lower body maximal assistance; grooming, standby; and toilet and shower transfers, minimal assistance. He has met 0/4 short-term OT goals. Comprehension is at moderate to standby assistance. Language and expression, moderate to standby assistance. Memory and problem solving, maximal assistance. Swallowing, standby, needs prompting to eat. Car transfers are currently minimal to contact guard assistance. The patient has been very open to pastoral care. DISCHARGE PLAN: The patient is receiving 3 hours of PT, OT, and speech Tuesday through Tuesday. The patient has daily rehabilitation, nursing, and physiatry involvement as well as Therapeutic Recreational Services 4 days per week. The patient has shown functional improvement and is progressing. Please see his plan of care for specific goals. Plan is for patient to discharge on 11/17/2016 to [facility] in [place], [place]. SONYA MATILDA FOR VALENTIN QUEZADA MD PATIENT'S NAME: NII KIM [facility] AGE: 86 Y [address] ROOM: [address] [place] [id number] LOCATION: [facility] ADMIT DATE: 10/25/2016 Consultation DISCHARGE DATE: 11/17/2016 FAMILY PHYSICIAN: Gabe Reese MD ATTENDING PHYSICIAN: Valentin Quezada TD/jose ml /[id number] d: 11/29/16 1352 t: 12/02/16 1023, CONSULTATION REPORT
--- NOTE | ~2016-10-25 | HP ---
PATIENT'S NAME: JESSICA KIM [facility] AGE: 86 Y [address] ROOM: [place] [address] LOCATION: [facility] ADMIT DATE: 10/25/2016 History & Physical DISCHARGE DATE: FAMILY PHYSICIAN: Gabe Reese MD ATTENDING PHYSICIAN: Jourdan Godfrey DATE OF SERVICE: 10/25/2016 ADDENDUM: The patient was seen and examined on 10/25/2016. MD TAWANDA DUNBAR/jose ml /[id number] D: [id number] T: 412 HISTORY & PHYSICAL
--- NOTE | ~2016-10-25 | HP ---
PATIENT'S NAME: JESSICA KIM [facility] AGE: 86 Y [address] 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 He was admitted to [facility] by the Neurology Service about 5 days prior to transfer to [facility] and has made improvements in mental status, but is still very weak, and unable to walk without assistance or do self-cares without assistance. He cannot walk across the room alone or get up out of a chair without assistance. He has weakness of his left upper and lower extremities, but they are getting stronger. PAST MEDICAL HISTORY: Mild dementia, occasionally disoriented, essential hypertension, and coronary artery disease. FAMILY HISTORY: Positive for cardiac disease. SOCIAL HISTORY: No smoking or alcohol. 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 HOME MEDICATIONS: 1. Aspirin. 2. Donepezil. 3. Hydrochlorothiazide. 4. Losartan. 5. Pregabalin. 6. Requip. 7. Sertraline. 8. Tamsulosin. PAST SURGICAL HISTORY: No orthopedic procedures. REVIEW OF SYSTEMS: No fevers, chills, or chest pain. No shortness of breath or trouble breathing. No nausea or vomiting. No dysuria or hematuria. He does have some constipation. No malaise. He is a little depressed at times. No skin PATIENT'S NAME: JESSICA KIM [facility] AGE: 86 Y [address] ROOM: [address] [address] LOCATION: [facility] ADMIT DATE: 10/25/2016 History & Physical DISCHARGE DATE: FAMILY PHYSICIAN: Gabe Reese MD ATTENDING PHYSICIAN: Jourdan Godfrey changes or weight change. PHYSICAL EXAMINATION: GENERAL: He is alert, but slow in answering questions, but occasionally is inappropriate and slightly confused. VITAL SIGNS: Temp 97.9, pulse 73, blood pressure 148/79, and respirations 16. HEENT: Atraumatic, normocephalic. Pupils equal, round, and reactive to light. NECK: Supple, nontender. CHEST: Clear to auscultation. HEART: Regular rhythm. ABDOMEN: Soft, nontender, without masses. SPINE: Nontender. EXTREMITIES: He has mild weakness of his left upper and lower extremities, 4/5 shoulder abduction and flexion, elbow flexion and extension, wrist flexion and extension, 4/5 strength of hip flexion and extension, knee flexion and extension, ankle dorsi and plantarflexion. Sensation intact to all upper extremities. Reflexes are slightly increased on the left upper and lower extremity and 1+ on the right. He has good pulses. No ankle edema. LABORATORY DATA: Hemoglobin was 13.7, white count 11.0, platelets 143,000. Sodium is 142, potassium 3.7, chloride 109, BUN 15, and creatinine 1.0. MRI of his brain from 10/21/2016 demonstrates normal intracranial MRI study. IMPRESSION: 1. Dependent in activities of daily living. 2. Unstable gait. 3. Mild weakness and hemiparesis, left upper and lower extremities, secondary to intracranial dysfunction. 4. Hypertension. 5. Benign prostatic hypertrophy. 6. Mild dementia. 7. Unstable gait. PLAN: Intensive physical therapy, occupational therapy, and speech therapy. Family and social support. Goal is to return him home with the highest function possible. JOURDAN GODFREY MD PATIENT'S NAME: JESSICA KIM [facility] AGE: 86 Y [address] ROOM: [address] [place] [address] LOCATION: [facility] ADMIT DATE: 10/25/2016 History & Physical DISCHARGE DATE: FAMILY PHYSICIAN: Gabe Reese MD ATTENDING PHYSICIAN: Jourdan Godfrey/brendon /[id number] D: [id number] T: [id number] HISTORY & PHYSICAL
--- NOTE | ~2016-10-25 | CON ---
PATIENT'S NAME: NII KIM [facility] AGE: 86 Y [address] ROOM: [place] [address] LOCATION: [facility] ADMIT DATE: 10/25/2016 Consultation DISCHARGE DATE: FAMILY PHYSICIAN: Gabe Reese MD ATTENDING PHYSICIAN: Valentin Quezada DATE OF CONSULTATION: 10/26/2016 REFERRING PHYSICIAN: VIKRAM FIERRO MD Team members reporting include Dr. Jourdan Godfrey, acting for Dr. Quezada this week; Sonya Napoles, nursing home social worker; Pennie Espinoza, RN; Michelle Rdz, PT; Belén Spencer, PT; Indiana Cooney, OT; Bernarda Villalpando, Speech Therapy; Silvina Daniel, therapeutic rec; and Sister Florina Jerome, Pastoral Care. CURRENT STATUS: Nii is an 86-year-old man, admitted to our inpatient rehab unit on October 25, 2016, following a CVA. He has a history of srij-cy-isigkeld dementia; coronary artery disease, status post CABG approximately 10 years ago. The patient is incontinent of bladder at times. He does have a scab to his right elbow and the right top of his hand. His prealbumin is currently at 23. He is on a cardiac diet. The patient can transfer sit to supine and supine to sit at minimal assistance; sit to stand and stand to sit, minimal to moderate assistance; and bed to chair and chair to bed, minimal assistance. He can walk 150 feet with a front-wheeled walker at minimal assistance. Stairs have not been done yet for safety. Cognition is a limiting factor. Occasionally, the patient requires different levels assistance and at one point today required two-person assistance because he could not understand what they were asking him to do. The patient's long-term goals have been set for standby assistance to mod I. The patient can dress his upper body at minimal assistance; lower body, dependent; bathing, moderate assistance; toilet transfers and shower transfers, minimal assistance. He does have difficulty with processing. He is very slow and has poor initiation. Comprehension is at moderate assistance. Language and expression, moderate assistance with mild dysarthria and low volume. Memory, max assistance. Problem solving, max assistance. The patient was done in initial evaluation for therapeutic rec. He needs cues to remain alert. The patient's has been with him while he has been here, and she did demonstrate fairly significant cognitive issues as well. The patient's and daughter have been here, and the patient's numerical control operator has been here and he is very open to pastoral care. DISCHARGE PLAN: The patient is receiving 3 hours of PT, OT, and Speech; Tuesday through Tuesday. The patient has daily rehab, nursing, and physiatry involvement as well as therapeutic recreational services 4 days per week. The patient has shown functional improvement and is progressing. Please see his plan of care for PATIENT'S NAME: NII KIM [facility] AGE: 86 Y [address] ROOM: [place] [address] LOCATION: [facility] ADMIT DATE: 10/25/2016 Consultation DISCHARGE DATE: FAMILY PHYSICIAN: Gabe Reese MD ATTENDING PHYSICIAN: Valentin Quezada specific goals. Plan is for the patient to discharge in approximately 2-3 weeks. We are recommending the patient will have 24-hour care at home for safety. SONYA NAPOLES FOR VALENTIN QUEZADA MD TD/jose ml /[id number] d: 11/01/162025 t: 11/25/16 1602, CONSULTATION REPORT
--- NOTE | ~2016-10-25 | CON ---
PATIENT'S NAME: JESSICA KIM [facility] AGE: 86 Y [address] ROOM: [place] [address] LOCATION: [facility] ADMIT DATE: 10/25/2016 Consultation DISCHARGE DATE: FAMILY PHYSICIAN: Gabe Reese MD ATTENDING PHYSICIAN: Valentin Quezada DATE OF CONSULTATION: 11/02/2016 REFERRING PHYSICIAN: VIKRAM FIERRO MD Team members reporting include Dr. Quezada; Sonya Napoles, administrator social welfare; Pennie Espinoza, RN; Belén Spencer, PT; Michelle Rdz, PT; Indiana Cooney, OT; Bernarda Villalpando, Speech Therapy; Silvina Daniel, therapeutic rec; and Sister Cheryl Ibanez, Pastoral Care. CURRENT STATUS: Gisella Bales is an 86-year-old man, who admitted to our inpatient rehab unit on October 25, 2016, following a CVA. He also has a history of previous dementia. The patient is incontinent of bowel and bladder at times. He does have a scab to his right hand and his right forearm, takes Tylenol for pain. He can transfer sit to supine and supine to sit at contact guard assistance; bed to chair, contact guard assistance to minimal assistance. He can walk 150 feet at contact guard assistance to minimal assistance all the way up to moderate assistance using a walker. His overall safety is poor. He can climb 4 stairs with minimal to moderate assistance and moderate verbal cues. He has a weak flexed posture. He has met 2 out of 5 short-term PT goals. The patient can dress his upper body at standby assistance; lower body, moderate assistance; grooming, standby; bathing, minimal assistance; toilet transfers, minimal to contact guard assistance; toileting, maximum assistance; shower transfers, contact guard assistance; and feeding, standby assistance. The patient does tire out quickly. He has met 1 out of 3 short-term OT goals. The patient's comprehension is at standby and language and expression, minimal to standby assistance. His volume is low. Memory, maximum assistance. Problem solving, moderate assistance. Car transfers can be completed at minimal assistance. Open to pastoral care, likes to visit. DISCHARGE PLAN: The patient is receiving 3 hours of PT, OT, and speech, Tuesday through Tuesday. The patient has daily rehab, nursing, and physiatry involvement as well as therapeutic recreational services 4 days per week. The patient has shown functional improvement and is progressing. Please see his plan of care for specific goals. Plan is for the patient to discharge in approximately 2 weeks. Initially, we were looking at the patient going to home with caregivers; however, we may need to look at retirement facility. PATIENT'S NAME: JESSICA KIM [facility] AGE: 86 Y [address] ROOM: [place] [address] LOCATION: [facility] ADMIT DATE: 10/25/2016 Consultation DISCHARGE DATE: FAMILY PHYSICIAN: Gabe Reese MD ATTENDING PHYSICIAN: Valentin Quezada SONYA NAPOLES FOR VALENTIN QUEZADA MD TD/modl /[id number] d: 11/12/16 1430 t: 11/25/16 1607, CONSULTATION REPORT
--- NOTE | ~2016-10-25 | CON ---
PATIENT'S NAME: JESSICA KIM [facility] AGE: 86 Y [address] ROOM: [address] [place] [address] LOCATION: [facility] ADMIT DATE: 10/25/2016 Consultation DISCHARGE DATE: FAMILY PHYSICIAN: Gabe Reese MD ATTENDING PHYSICIAN: Valentin Quezada DATE OF CONSULTATION: 11/09/2016 REFERRING PHYSICIAN: VIKRAM FIERRO MD Team members reporting include Dr. Quezada; Sonya Napoles, psychiatric social worker; Pennie Espinoza, RN; Belén Spencer, PT; Michelle Ramirez, PT; Marlin Jones, OT; Bernarda Villalpando, Speech Therapy; Silvina Daniel, therapeutic rec; and Sister Trent Ibanez. CURRENT STATUS: Gisella Bales is an 86-year-old man, who is admitted to our inpatient rehab unit on 10/25/2016, following a CVA. The patient has a history of dementia as well. He fell on Tuesday11/07/2016 with no injuries. The patient is incontinent of bowel and bladder. Skin is good. He complains of occasional headaches. The patient is on a cardiac mechanical soft diet. His prealbumin is 19, which is down from 23. He is getting Magic cups twice a day and Ensure pudding at breakfast. The patient can complete sit to supine and supine to sit transfers at standby assistance, yvu-by-efnyk and stand to sit, contact guard assistance to minimal assistance; and bed to chair and chair to bed transfers at minimal assistance. He needs cues for all transfers. He can walk 100 feet with minimal to contact guard assistance using a front-wheeled walker. He does have some lethargy and fatigue. He can climb 4 stairs with 2 railings at minimal to moderate assistance. He has met 2/4 short-term PT goals. The patient can dress his upper body at standby; lower body moderate assistance; grooming, standby; bathing, minimal assistance; toilet and shower transfers, contact guard assistance. His goals have been set for standby assistance to modified independence. Comprehension, language, and expression are at standby, memory and problem solving, max assistance. He is getting a mechanical soft diet as he is not chewing well. He needs to be fed as he has not eating adequately. His car transfers are currently at contact guard assistance to minimal assistance. Dr. Quezada did order a CMS for the morning as well as an MRI as overall it is felt the patient seems to have had a change in condition. DISCHARGE PLAN: The patient is receiving 3 hours of PT, OT, and speech Tuesday through Tuesday. The patient has daily rehab, nursing, and physiatry involvement as well as therapeutic recreational services 4 days per week. The patient has shown functional improvement and is progressing. Please see his plan of care for specific goals. Plan is for patient to discharge as soon as placement can be PATIENT'S NAME: JESSICA KIM [facility] AGE: 86 Y [address] ROOM: [place] [address] LOCATION: [facility] ADMIT DATE: 10/25/2016 Consultation DISCHARGE DATE: FAMILY PHYSICIAN: Gabe Reese MD ATTENDING PHYSICIAN: Valentin Quezada obtained to a nursing home facility. SONYA NAPOLES FOR VALENTIN QUEZADA MD TD/modl /[id number] d: 11/12/16 1420 t: 11/25/16 1604, CONSULTATION REPORT
--- NOTE | ~2016-10-25 | DS ---
PATIENT'S NAME: JESSICA KIM [facility] AGE: 86 Y [address] ROOM: [id number] [place] [address] LOCATION: [facility] ADMIT DATE: 10/25/2016 Discharge Summary DISCHARGE DATE: FAMILY PHYSICIAN: Gabe Reese MD ATTENDING PHYSICIAN: Timoteo Elmore This 86-year-old gentleman was admitted to Rehab Unit on 10/25/2016, is discharged to go to [facility] in [place], [place] on 11/17/2016. 1. Unstable gait. 2. Dependent activities of daily self-care. 3. Status post left hemiplegia, secondary to CVA with some confusion. 4. He is now doing better, alert, oriented, with cuing. 5. VITAL SIGNS: Blood pressure 113/72, temperature 98.0, pulse 78, and respiration rate 20. 6. He is able to ambulate 120 feet x1 with front-wheeled walker and of some rest along the way. 7. He is to continue with PT, OT, and Speech while he is at the [facility] in [place], [place]. 8. He is at the present time advised strongly not to drive and/or operate any mechanical device until he is reevaluated. He is at the present time on the following medications: 1. Avodart 0.5 mg p.o. daily. 2. Flomax 0.4 mg p.o. q.p.m. 3. Lipitor 80 mg p.o. daily. 4. Plavix 75 mg p.o. daily. 5. Aricept 10 mg p.o. daily. 6. HydroDIURIL 25 mg in the morning. 7. Cozaar 100 mg p.o. daily. 8. Namenda 5 mg p.o. daily. 9. Protonix 40 mg p.o. daily. 10. KCl 20 mEq p.o. daily. 11. Requip 1 mg p.o. daily at bedtime. 12. Zoloft 150 mg at bedtime. 13. Tylenol 650 q.6 h., do not exceed acetaminophen 4 g q.24 h., give 36 of them. FINAL DIAGNOSES: 1. Unstable gait. 2. Dependent activities of daily self-care. 3. Confusion, status post left hemiplegia, secondary to cerebrovascular accident, ischemic stroke. 4. Hypertension. 5. Benign prostatic hypertrophy. 6. Restless legs syndrome. 7. Coronary artery disease per history. PATIENT'S NAME: JESSICA KIM [facility] AGE: 86 Y [address] ROOM: [place] [address] LOCATION: [facility] ADMIT DATE: 10/25/2016 Discharge Summary DISCHARGE DATE: FAMILY PHYSICIAN: Gabe Reese MD ATTENDING PHYSICIAN: Timoteo Elmore 8. Encephalitis, now stable. 9. Dyslipidemia. 10. Dementia. 11. The patient is not to drive and/or operate any mechanical device until he is evaluated. 12. He is not to follow with me, he should follow at the local hospital and local physician. All the above was explained to him and his family in detail. They verbalized understanding and agreement with plan of care. TIMOTEO ELMORE MD WMS/modl /[id number] d: 11/17/16225 t: 11/17/16 08, DISCHARGE SUMMARY
[~2016-10-25 11:26] MED LIST: AMOXICILLIN500 MG PO; ARICEPT 5 MG5 MG PO; ASPIR 8181 MG PO; COLACE100 MG PO; COZAAR100 MG PO; HYDROCHLOROTH12.5 MG PO; JALYN 0.5-0.41 EACH PO; JUICE PLUS PO; LYRICA 100MG C100 MG PO; NITROGLYCERIN0.4 MG SL; ROPINIROLE HCL1 MG PO; ULTRAM50 MG PO; ZOLOFT100 M1 PO
--- NOTE | 2016-10-25 13:27 | NUR ---
PATIENT ADMITTED TO [facility] FROM [facility]. AT BEDSIDE. ALERT AND ORIENTED TO PERSON AND PLACE. FORGETFUL, NEEDS ALARMS, REORIENTS WELL. DENIES PAIN. SCABS TO ARMS, NO OTHER SKIN ISSUES. CONTINENT MOSTLY BUT DRIBBLES URINE IF HE IS IN A HURRY. BM TODAY. SLIGHT LEFT LEG WEAKNESS. VITALS STABLE BUT HAS HYPERTENSION, HISTORY OF CABG. STATES HE HAS HISTORY OF SLEEP APNEA BUT DOES NOT NEED CPAP. LUNGS CLEAR. PILLS WHOLE WITH WATER. FEEDS SELF WELL. 1 ASSIST WALKER, GAIT BELT. CARDIAC DIET. FULL CODE. HAZARDOUS MED. NO IV ACCESS.
--- NOTE | 2016-10-26 04:39 | NUR ---
Significant Event:Alert to self, reorient to time and place. Alarms at ALL times. 1 assist with gaitbelt and walker. Weakness to left leg, drags at times. VSS on room air. Scabs on arms intact. Groin excoriated and RED! [place] to be applied with toileting. Some dribbling when in a hurry, incontinent at times. Cooperative with cares. Call light in reach. Follow up:Sbllpi-Ddarhj-Yhlfpmaiv med.
[2016-10-26 05:41] LABS: BASOPHIL % 0.4 %; EOSINOPHIL # 0.2 K/uL (0.0-0.5); EOSINOPHIL % 1.7 %; HEMATOCRIT 39.9 % (33.0-50.0); HEMOGLOBIN 13.7 g/dL (11.0-16.0); IMMATURE GRANULOCYTE % 0.4 %; LYMPHOCYTE # 3.6 K/uL (0.8-4.0); LYMPHOCYTE % 32.2 %; MCH 31.3 pg (27.0-34.0); MCHC 34.3 gm/dL (32.0-36.5); MCV 91.1 fl (83.0-98.0); MONOCYTE # 0.7 K/uL (0.0-1.0); MPV 10.6 fl (9.4-12.4); NEUTROPHIL # (ANC) 6.5 K/uL (1.4-9.0); NEUTROPHIL % 59.3 %; NRBC % 0 /100WBC (0-0.00); PLATELET COUNT 143 K/uL (150-450); RBC 4.38 M/uL (3.50-5.50); RDW-CV 13.7 % (11.9-14.6)
[2016-10-26 06:01] LABS: ALBUMIN 3.2 gm/dL (3.5-5.0); ALK PHOS 90 IU/L (33-138); ALT 22 IU/L (12-78); BLOOD UREA NITROGEN 16 mg/dL (6-24); CALCIUM 8.6 mg/dL (8.5-10.5); CHLORIDE 110 mMol/L (96-110); CO2 22 mMol/L (22-32); CREATININE 0.9 mg/dL (0.6-1.3); ESTIMATED GFR (MDRD EQUATION) > 60; SODIUM 143 mMol/L (135-145); TOTAL BILIRUBIN 0.6 mg/dL (0.0-1.5); TOTAL PROTEIN 6.3 g/dL (6.0-8.4)
[2016-10-26 06:05] LABS: ANION GAP 14.2 (10.0-19.0); AST 30 IU/L (10-40); POTASSIUM 3.2 mMol/L (3.7-5.1)
--- NOTE | 2016-10-26 13:54 | NUR ---
D: Therapeutic Recreation Initial Assessment on 10/26/16. I: Patient seen for 2 unit at 1355 to begin initial evaluation. Pt has dx of CVA with R) side affected with hx of demenita. R: Patient's current living situation and status: house in town Home entrance steps: 2 Living with: Spouses name: Mariah # of children: 4 (2) close by Driving: yes, spouse does drive Ambulating: I > mod I Equipment: has cane Hand Dominance: Right Brake Lining Maker strength: R) side affected Eye sight: glasses Reading ability: not tested Hearing: no problem Speech: clear Cognition: impaired Comprehension: poor Following directions: at times Initiating: at times Eye contact: good Affect: flat COMMUNITY INVOLVEMENT: mormon weekly, coffee with friends daily, [facility], visit family and friends, car rides often, grandchildren's sporting events LEISURE INTERESTS: watch TV, read (magazines, newspaper, computer but doesn't use, Patient is referred by medical staff for treatment and evaluation in the following areas: Community Skills, Functional Leisure Skills, Participation, Leisure Education/Behaviors, Family Education, Cognitive, Emotional. Information obtained: Interview, Chart Review, Family resource, Observation, other. BARRIERS TO LEISURE: Social, Physical, Lifestyle (hx of depression - on meds) Transportation, Leisure Skills. Patient determined to be: APPROPRIATE FOR THERAPEUTIC RECREATION ASSESSMENT. TREATMENT WILL INCLUDE: Community living skills training Functional leisure development Physical skills development Cognitive skills development Social skills development Leisure education Emotional/behavioral adaptation Family education Community resources/packet TARGET EQUIPMENT/INFORMATION: Parking Permit to assess need Community Resources Energy conservation in community setting Van/Service/Taxi Scrip Adapted Leisure Equipment Stress management/Relaxation techniques Functional car transfers Leisure Education Behaviors: Attitude, Awareness, Participation. Patient functional skills level and potential: guarded, pt demonstrates poor mobility, cognitive concerns and safety due to dementia hx. Patient oriented ot TR services on Rehab unit. Pt/family provided input into goals setting and plan of care. Pt's goal is to return home and drive again. P: Target date set with personal goals established. Will continue with POC focusing on pt/family training and education. For additional information please see Nursing Data Base, PT, OT, CM, ST, initial assessments to [facility] and Interdisciplinary Assessments.
--- NOTE | 2016-10-26 15:54 | NUR ---
Significant Event:PATIENT VERY SLEEPY THIS AM AND EASILY CONFUSED. TOOK A LONG TIME TO GET HIM TO TAKE HIS MEDS. DAUGHTER FINALLY TOOK THE MEDS AND PUT A FEW IN HIS MOUTH AT A TIME AND HE SWALLOWED WITHOUT DIFFICULTY. HAS DENIED PAIN. TRANSFERS WITH 2 ASSIST, GAIT BELT AND PIVOT OR WALKER. DOES NOT FOLLOW DIRECTIONS ALL THE TIME AND NEEDS LOTS OF QUE[place]. VSS. DID PARTICIPATE IN THERAPIES. AT BEDSIDE ALL SHIFT. SHE GETS LOST EASILY AND NEEDS DIRECTION ALSO. NO OTHER COMPLAINTS. Follow up:
--- NOTE | 2016-10-27 04:51 | NUR ---
Significant Event:Alert to self. Dementia. Alarms at all times. 1-2 assist with gaitbelt and walker. Some left side weakness mostly in left leg, tends to drag a bit when tired. Incontinent at times. VSS. Meds 1-2 @ time with water. Call light in reach. Bed alarm on. Follow up:Tylenol at HS.
--- NOTE | 2016-10-27 11:57 | NUR ---
D: TR progress note for 10/27/16. I: Pt seen for 2 units at 1030 for cognitive task, visual scanning, fine motor skills, coping skills and functional transfers. R: Pt seen for functional skills building working on concentration, sequencing visual scanning and coping skills doing cognitive matching task using large piece adaptive puzzle with different (shape/texture/color) to increase independence with all task. Pt transferred sit > stand from recliner mod assist, pivoted to WC with walker min assist and transferred into chair min assist with cues for hand placement. Pt able to complete 04/30 with 100% accuracy with min > mod cues utilizing LUE with continuous cues to use LUE not RUE. Pt demonstrated fair > poor dexterity when maneuvering puzzle pieces needing cues for scanning L) with fair attention to task. P: Will continue to see to address goals and plan of care.
--- NOTE | 2016-10-27 17:07 | NUR ---
Significant Event:PATIENT DISORIENTED TO TIME AND PLACE. GETS MORE CONFUSED THE GETS LATER. VSS. TRANSFERS WITH 1-2 ASSIST, GAIT BELT AND WALKER. NEEDS LOTS OF CUING AND REMINDING. ALARMS AT ALL TIMES. IS INCONTINENT OF BOTH URINE AND STOOL AT TIMES. DENIES PAIN. SON HERE THIS AM AND IS GETTING IMPATIENT FOR TO GET HERE THIS EVENING. NO OTHER COMPLAINTS. Follow up:
--- NOTE | 2016-10-28 00:33 | NUR ---
Significant Event: Alert to self. Pleasantly disoriented to time/place this evening. Cooperative and follows instructions/tasks for HS cares. 1a walker/gb, unsteady at times, needs cues with transfers. VSS. Incontinent of urine tonight. Denies pain. Alarms at all times, does not always remember to use call light. Needs meals ordered, daughter has them wrote down, will pass on list to day TA. Haz med precautions. Follow up:
--- NOTE | 2016-10-28 13:32 | NUR ---
Significant Event: Patient alert but disoriented this morning. Calling out for his . Is impulsive and needs alarms as he forgets to calls. Needs lots of cues and reorienting to surroundings. Left sided weakness. Is incontinent at times. At 0930 therapy brought him back down to his room states he is too sleepy and lethargic to keep awake to do therapy. Speech therapy found food still pocketed in his mouth from breakfast. Nurses attempted to transfer patient from wheelchair to bed and patient was unable to stand. Full lift back to bed. Neuro checks are within normal limits besides lethargy. Vitals WNL. Neuro MD notified and Hospitalist notified. Hospitalist will round on patient. Patient slept from 0945 to 1115. At 1115 Physical therapy was able to wake patient up and get him in the chair. Did therapy session and then ate lunch without difficulty. Patient is alert since this time. Follow up:
--- NOTE | 2016-10-28 13:52 | NUR ---
[facility] Case Management Prefunctioning and Psycho-Social Initial Assessment for 10/25/16 and Case Conference Note for 10/26/16 D: Initial Foot SetterHandyman and Case Conference Note. I: Input from: patient, family, Dr. Aguillon, Dr. Crews, Cori Napoles PYROMETALLURGICAL ENGINEER and Sonya Napoles SIGNAL TESTER R: Reason for admission: right periventricular CVA. Admission Date to [facility]: 10/25/16 Admission Date to Hospital: 10/21/16 Prior level of functioning: patient was independent with adl's and mobility prior to stroke. He does have a hx of dementia. Prior living situation: one story house with basement. Financial resources/expectations: patient has Medicare and [place]. Resources used: walk-in shower with shower chair, front wheeled walker. Resources available: C, outpatient therapy, SNF, [facility], [facility], DME. 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 Monitor for signs and symptoms of depression and anxiety. Legal concerns: none. Discharge goal: home with support. Assessment: Nii is an 86 year old man from [place], [place] admitted after a stroke. He has good family support. Patient has a premorbid diagnosis of dementia. His also has dementia. Team conference was held and plan is to d/c patient in approx. 2-3 weeks. Patient's family is in agreement with this plan. Team feels that patient will need 24 hour supervision upon d/c for safety. Orientation to the program and CM services completed with Nii. Initial plan of care and estimated length of stay discussed, disclosure statement reviewed including patient assessment rights. P: Target date and individual goals established. Please see POC for details. For additional information please see Nursing Data Base, PT, OT, TR, ST, Initial assessments to [facility].
--- NOTE | 2016-10-29 04:53 | NUR ---
Patient alert but disoriented, Hx of dementia. Transfers 1-2A gb/walker. Can be impulsive and unsteady at times. Incontinent at times. L) side weak. VSS. Need a UA a done. Cooperative with cares.
--- NOTE | 2016-10-29 12:10 | NUR ---
D: TR Progress Note for 10/29/16. I: Pt seen for 2 units at [facility] for community integration skills building, functional transfers, and safety awareness. R: Pt seen for functional skills building working on mobility, safety, and functional transfers in anticipation for discharge back into community. Pt transferred on/off toilet from CGA with cues for technique, dependent for clothing management and SBA for hand hygiene at sink from . Pt transferred to/from vehicle CGA doing scoot/pivot transfers with verbal cues for hand placement and safety. Pt was SBA for BLE management and positioning self with extra time allotted, seat surface adapted using trash bag to ease task and verbal cues. Pt tolerated ride with no C/o nausea, pain, or discomfort. P: Will continue to see to address goals and plan of care.
--- NOTE | 2016-10-29 13:54 | NUR ---
A - PT SCREENED D/T LOS. CVA. DISORIENTED. HX: DEMENTIA. 1-2+ EDEMA. HT: 70" WT: 212# BMI: 30.4. LABS: K+ 3.2, GLU 104, ALB 3.2, PREALB 23. MEDS: NAMANDA, HYDRODIURIL, ARICEPT, PROTONIX, BOWEL. DIET: CARDIAC, SOFT. INTAKE: BITES-100%, AVG ~51%. NEEDS: 4947-1505 KCAL (15-20 KCAL/KG), 77-96 G PRO (0.8-1 G/KG), 2400 ML FLUID (25 ML/KG) D - INADEQUATE NUTRIENT INTAKE AT TIMES R/T DECREASED APPETITE AEB INTAKE RECORD. I - GOAL FOR INTAKE 50-100% BY NEXT ASSESSMENT. WILL ADD ENSURE BID TO INC NUTRIENT INTAKE. M/E - WILL MONITOR INTAKE. F/U IN 5-7 DAYS.
--- NOTE | 2016-10-29 16:00 | NUR ---
Significant Event:+ Follow up: Patient up to chair, up and ambulates to toilet with two standby assist and did very well today. Eats with supervision, takes medicatons whole with water. Speech therapist observed with medicaiton delivery and noted some choking with swallow when patient was laughing. Incontinent of urine today and was not able to get voided UA. Denies pain. Patient is pleasent and cooperative with staff , disoriented to place and time.
--- NOTE | 2016-10-30 04:40 | NUR ---
Patient alert and oriented. Transfers 1-2A gb/walker. Impulsive and needs alarms. Incontinent x1. Daughter is wondering about starting Juice Plus capsules, said that he had been takingthem before. VSS. Cooperative with cares.
[2016-10-30 08:35] LABS: BILIRUBIN URINE NEGATIVE (NEGATIVE); BLOOD URINE 10 /UL (NEGATIVE); COLOR URINE YELLOW (YELLOW); GLUCOSE URINE NEGATIVE (NEGATIVE); KETONE URINE NEGATIVE (NEGATIVE); LEUKOCYTES URINE NEGATIVE /UL (NEGATIVE); NITRITE URINE NEGATIVE (NEGATIVE); PROTEIN URINE NEGATIVE (NEGATIVE); TURBIDITY URINE CLEAR (CLEAR); UROBILINOGEN URINE NORMAL (NORMAL)
[2016-10-30 08:41] LABS: BACTERIA URINE NEGATIVE (NEGATIVE); EPITHELIAL URINE NEGATIVE #/HPF (NEGATIVE); RBC URINE RARE #/HPF (NEGATIVE); WBC URINE NEGATIVE #/HPF (NEGATIVE)
--- NOTE | 2016-10-30 16:30 | NUR ---
Significant Event: Patient alert today. Is confused most of the time. Needs lots of cueing. Tries to joke all the time and it is hard to get him to focus on the task. 2 assist and will ambulate to bathroom. Needs alarms and cannot be left alone in bathroom. Needs to be up for all meals and supervised in dining room. Follow up:
--- NOTE | 2016-10-31 04:58 | NUR ---
Patient alert and oriented to self, very confused for the most part. Transfers 1-2 A gb/walker. Alarms at all time. Is able to walk to the restroom but gets tired in the evenings. Family at bedside. Likes to joke around and gets off distracted and off task. Supervision in restroom and in dining room. Family brought in Juice Plus supplements as patient was taking them at home, order recieved to give one capsule from each bottle (there is four) in the AM and one capsule at HS. Cooperative with cares.
--- NOTE | 2016-10-31 14:17 | NUR ---
Significant Event: PATIENT UP 1-2 ASSIST, WALKER, GAIT BELT. ALERT AND ORIENTED TO PERSON AND BIRTHDATE TODAY. NEEDS ALARMS AT ALL TIMES. FORGETFUL. FEEDS SELF WELL. NO ISSUES SWALLOWING. SLIGHTLY WEAKER TO LEFT SIDE. VITALS STABLE ON ROOM AIR. HAZARDOUS MED PRECAUTIONS. INCONTINENT OF URINE. FAMILY AT BEDSIDE TODAY. DENIES PAIN. Follow up:
--- NOTE | 2016-11-01 05:11 | NUR ---
Patient Alert and oriented to person. Forgetful, alarms at all times. L) side weak, and gets worse when the patient is tired. VSS. Cooperative with cares. Likes to joke around and get off task. Family at bedside this evening.
--- NOTE | 2016-11-01 15:11 | NUR ---
Significant Event: Patient alert but only oriented to self. Up with 1-2 assist. Is incontinent at times. Needs lots of verbal cuing. Likes to joke around alot so it is hard to keep him on task.
--- NOTE | 2016-11-02 05:36 | NUR ---
Significant Event:ALERT TO SELF. CAN REORIENT TO TIME AND PLACE AT TIMES. IMPULSIVE. ALARMS AT ALL TIMES. 1-2 ASSIST TRANSFER W/ GAITBELT AND WALKER. NEEDS A LOT OF CUEING. PATIENT IS A JOKESTER & LIKES TO SAY "OW!" ALOT. RESTLESS NIGHT WITH THE STORMS. INCONTINENT X1. MEDS 2 AT A TIME WITH WATER. DAUGHTER ASSISTED WITH HS CARES. DAUGHTER AND TO RETURN LATER THIS MORNING, MOST LIKELY. BED ALARMS ON. CALL LIGHT IN REACH. Follow up:
--- NOTE | 2016-11-02 13:15 | NUR ---
D: TR progress note for 11/02/16. I: Pt seen for 2 units at 1015 for fine motor skills, attention to task, problem solving and coping strategies. R: Pt seen for functional skills building working on cognitive thinking task for problem solving, motor skills and coping strategies to increase independence in recall and cognition. Pt worked on large adaptive sequencing wooden jigsaw puzzle needing max for cues. Pt utilized BUE with fair fine motor skills, coordination and attention to task but poor problem solving. Education continue on use of leisure to promote recovery and coping. P: Will continue to see to address goals and plan of care.
--- NOTE | 2016-11-02 16:57 | NUR ---
Pt is alert, oriented to self. Up with 1-2 assist to BR with walker & gaitbelt. Up in chair. Incont. Alarms on @ all times. Impulsive. Llikes to joke, tries to cover up disorientation with joking. No family here.
--- NOTE | 2016-11-03 04:18 | NUR ---
Significant Event:A/O. 1-2 assist trasfer depending on tiredness. Forgetful; alarms at all times. Patient likes to Joke; says "Ow!" for no reason during assessment and meds. Denies pain. Bed alarm on. Call light within reach. Follow up:
--- NOTE | 2016-11-03 11:54 | NUR ---
D: TR progress note for 11/03/16. I: Pt seen for 2 units at 1100 in group session for education on safety when around pets/animals, and leisure education. R: Pt seen for functional skills building working on fine motor skills, scanning, safety awareness and functional social communication in anticipation for discharge back into community/home where animals will be present. Pt independent with personal introduction of self and sharing with group about daughter's pets. Pt utilized BUE with good scanning and fair attention to task during Animal Assisted Therapy. Education done on safety with ambulation/mobility in homes when around animals, safety with possibility of poor skin integrity and utilizing pets to assist with coping and stress/pain management when opportunity available. P: Will continue to see to address goals and plan of care.
--- NOTE | 2016-11-03 18:57 | NUR ---
Significant Event: PT DENIED PAIN. PT INC OF URINE. PT CONFUSED AND REQUIRES CUES WITH AMBULATION AND USING THE WALKER. PT HAD SEVERAL VISITORS TODAY. PT TOOK HIS PILLS 2 AT A TIME WITH NO PROBLEMS NOTED. Follow up:
--- NOTE | 2016-11-04 04:32 | NUR ---
Patient alert and oriented to self. Disoriented to place and time. Transfers 1-2A GB/Walker. Impulsive at times. Alarms. Incontinent X1. Likes to joke and get off task, needs encouragement to continue on task at hand. Family at bedside. Cooperative with cares.
--- NOTE | 2016-11-04 09:00 | NUR ---
A-NUTRITION F/U CBW (WHEELCHAIR SCALE): 94.0 KG. ADMIT WT (STANDING SCALE): 96.2 KG NO NEW LABS OR MEDS SINCE INITIAL ASSESSMENT COMPLETED DIET RX: CARDIAC SOFT DIET W/ENSURE ENLIVE BID. PO INTAKE OF MEALS IS BITES-1005; AVG IS 50%. REFUSING SUPPLEMENT. EST NUTR NEEDS: 5963-5795 KCALS AND 77-96 GM PROTEIN D-AT NUTRITION RISK W/INADEQUATE NUTRIENT INTAKE AT TIMES R/T DECREASED APPETITE AEB INTAKE RECORDS. I-1)D/C ENSURE ENLIVE BID 2)START MAGIC CUP BID W/LUNCH AND DINNER M/E-GOAL: PO INTAKE >/=50% FOR DURATION OF ADMIT 1)F/U PO INTAKE, SUPPLEMENT, WT, LABS AND POC IN 5-7 DAYS 2)ASSIST NEEDED
--- NOTE | 2016-11-04 15:50 | NUR ---
Significant Event:PATIENT ALERT BUT IS VERY FORGETFUL. NEEDS REMINDED FREQUENTLY OF NEED TO CALL AND NOT GET UP ON HIS OWN. ALARMS AT ALL TIMES. TAKES MEDS WHOLE WITH WATER. HAS DENIED PAIN. DIET WAS CHANGE TO A MECHANICAL SOFT DIET DUE TO HIM HAVING LOST WEIGHT AND HIS DENTURES DON'T FIT WELL SO HE HAS BEEN HAVING TROUBLE CHEWING WELL. NO OTHER COMPLAINTS. Follow up:
--- NOTE | 2016-11-04 15:56 | NUR ---
D: Steward/Stewardess Bath Team Conference Follow up for 11/02/16 I: Input from patient/family R: Met with: patient, daughter per telephone call, Sonya Helms DATA SUPPORT ANALYST Discussed rehab plan, patient progress, discharge plan and estimated length of stay of d/c in approx. 2 weeks. Patient/Family Preference: in agreement. Anticipated discharge disposition: home with support vs. swing bed. Education completed: Education was completed with patient regarding length of stay, progress in therapy and d/c plan. Assessment/Recommendation: Team recommends d/c in approx. 2 weeks. P: Case Coordination: Nii is an 86 year old man from [place], [place] admitted after a stroke. Patient has good family support. Will follow and assist as needed.
--- NOTE | 2016-11-05 05:06 | NUR ---
Significant Event: Up to bathroom and walked in rice with walker and 1-2 assist. needs reminders to slow down, lets walker get ahead of him. Tylenol 650 mg givne at 0428 for restlessness. has been awake off and on since 129. voids on toilet, but also incontinenet at times. small open area to right buttock, aloe vesta applied. forgetful. bed alarm on. has not used call light appropriately during night. Follow up:
--- NOTE | 2016-11-05 11:54 | NUR ---
D: TR Progress Note for 11/05/16. I: Pt seen for 2 units at [facility] for community integration skills building, functional transfers, and safety awareness. R: Pt seen for functional skills building working on mobility, safety, and functional transfers in anticipation for discharge back into community. Pt attempted to complete scoot type transfers but due to safety concerns using door transferred back into for second attempt. Pt transferred sit > stand from CGA, ambulated to/from vehicle CGA with walker, transferred into vehicle CGA but out min assist due to low surface height with cues for hand placement and use of handy bar. Pt was SBA for BLE management and positioning self with extra time allotted, seat surface adapted using trash bag to ease task and verbal cues. Pt tolerated ride with no C/o nausea, pain, or discomfort but noted increase in confusion and agitation needing max cues for redirection. P: Will continue to see to address goals and plan of care.
[2016-11-05 17:09] LABS: ALBUMIN 3.5 gm/dL (3.5-5.0); ALK PHOS 132 IU/L (33-138); ALT 21 IU/L (12-78); ANION GAP 11.3 (10.0-19.0); AST 12 IU/L (10-40); BLOOD UREA NITROGEN 23 mg/dL (6-24); CALCIUM 8.7 mg/dL (8.5-10.5); CHLORIDE 109 mMol/L (96-110); CO2 28 mMol/L (22-32); ESTIMATED GFR (MDRD EQUATION) > 60; POTASSIUM 3.3 mMol/L (3.7-5.1); SODIUM 145 mMol/L (135-145); TOTAL BILIRUBIN 0.5 mg/dL (0.0-1.5); TOTAL PROTEIN 7.2 g/dL (6.0-8.4)
--- NOTE | 2016-11-05 17:40 | NUR ---
Significant Event: Pt remains confused, at times belligerent. More difficulty reorienting today. Sleepy this afternoon. Dr Elmore ordered head CT, UA, CMS. Continue to need UA. Wait for pt outside his BR as he will not call at times. Pt takes med whole with liquids. Left foot drag at times. Follow up: safety, CT results, activity
[2016-11-05 19:42] LABS: BILIRUBIN URINE NEGATIVE (NEGATIVE); BLOOD URINE NEGATIVE /UL (NEGATIVE); GLUCOSE URINE NEGATIVE (NEGATIVE); KETONE URINE NEGATIVE (NEGATIVE); LEUKOCYTES URINE 25 /UL (NEGATIVE); NITRITE URINE NEGATIVE (NEGATIVE); PROTEIN URINE NEGATIVE (NEGATIVE); SPEC GRAVITY URINE 1.015 (1.003-1.035); UROBILINOGEN URINE 1 mg/dL (NORMAL)
[2016-11-05 20:06] LABS: COLOR URINE YELLOW (YELLOW); TURBIDITY URINE CLEAR (CLEAR)
[2016-11-05 20:09] LABS: BACTERIA URINE FEW (NEGATIVE); MUCUS URINE 2+ (NEGATIVE); RBC URINE NEGATIVE #/HPF (NEGATIVE)
--- NOTE | 2016-11-06 05:00 | NUR ---
Alert but disoriented to place and time. In talkative, joking mood tonight. Up with one assist, gaitbelt and walker. No noted BM since 11/02. Takes pills whole with water, but had difficulty swallowing the juice plus tabs last night. Gave them in pudding. CT of head done yest is negative. UA negative. Slight abnormals in CMS, see labs. Slept well this shift.
--- NOTE | 2016-11-06 14:35 | NUR ---
Significant Event:PATIENT ALERT BUT IS VERY FORGETFUL. HAS BEEN IN A FAIRLY GOOD MOOD. HAS BEEN VERY ORNRY AT TIMES. PLEASANTLY CONFUSED. HAS BEEN WAITING FOR HIS FAMILY TO COME VISIT AND ASKS MULTIPLE TIMES. DID TAKE A SHOWER THIS AFTERNOON HE WAS INCONTINENT OF STOOL AND NEEDED CLEANED WELL. TOOK MEDS WITH OUT DIFFICULTY WHOLE WITH WATER. A FEW AT A TIME. HAS DENIED PAIN ALL SHIFT. WAS STARTED ON POTASSIUM TODAY AT NOON HIS POTASSIUM WAS LOW THIS AM ON HIS BLOOD DRAW. NO OTHER COMPLAINTS. Follow up:
--- NOTE | 2016-11-07 02:50 | NUR ---
Significant Event:ALERT TO SELF. UNSURE TO ORIENTATION TO TIME AND PLACE, MAKES A LOT OF JOKES. 1-2 PERSON TRANSFER, DEPENDING ON DEGREE OF ALERTNESS, GAITBELT AND WALKER NEEDED. MEDS WHOLE ONE AT A TIME IF LARGE. SWALLOWS MEDS BETTER WITH A GLASS OF WATER OPPOSED TO DRINKING THROUGH A STRAW. VSS ON ROOM AIR. PATIENT AWAKE ALOT TONIGHT. INCONTINENT X1 SO FAR THIS SHIFT. CALF PUMPS APPEAR TO AGITATE PATIENT, REMOVED. CALL LIGHT IN REACH. BED ALARM ON. Follow up:NEEDS CONTINUAL CUING TO STAY ON TASK.
--- NOTE | 2016-11-07 14:06 | NUR ---
Significant Event: Patient alert but disoriented to time and place. Forgetful. Needs lots of cues, does not stay on task. Does not remember to use call light. 2 assist. Incontinent at times. Patient fell today. He was in recliner trying to get to the bed. No apparent injuries noted. Tabs alarms were on. Vitals stable. Checking on him more frequently.
--- NOTE | 2016-11-08 03:57 | NUR ---
Significant Event:Alert to self. Reorients to place and time for limited amount of time. 1 assist transfer with gaitbelt and walker/wheelchair. Patient fell asleep early in the evening and was unable/unwilling to swallow his larger capsuled supplements. Patient has taken a couple short naps since waking up around 2100. Setting off his bed alarm frequently. Incontinent X1. Alarms at all times. Call light in reach. Follow up:
[2016-11-08 06:48] LABS: ALBUMIN 3.2 gm/dL (3.5-5.0); ALK PHOS 123 IU/L (33-138); ALT 19 IU/L (12-78); ANION GAP 13.3 (10.0-19.0); AST 19 IU/L (10-40); BLOOD UREA NITROGEN 16 mg/dL (6-24); CALCIUM 8.6 mg/dL (8.5-10.5); CHLORIDE 113 mMol/L (96-110); CO2 24 mMol/L (22-32); ESTIMATED GFR (MDRD EQUATION) > 60; POTASSIUM 3.3 mMol/L (3.7-5.1); TOTAL BILIRUBIN 0.4 mg/dL (0.0-1.5); TOTAL PROTEIN 6.6 g/dL (6.0-8.4)
[2016-11-08 06:49] LABS: SODIUM 147 mMol/L (135-145)
--- NOTE | 2016-11-08 14:43 | NUR ---
Significant Event: Pt up in room with walker, 1 assist, sl unsteady, javi. fair. Pt impulsive with moves at times. Pt confused, needs reoriented often t/o day. Asks questions repetatively at times. Pt's behavior becomes innappropriate at times, to the point of kicking at staff, at times a little physical aggressiveness. Pt appears to be "joking" but continues it to the point of being innappropriate like grabbing and kicking. ordered additional KCL, pt took 40min before taking pills with nurse present at lunch time. No c/o pain. Alarms in use. Follow up: activity, safety, alarms in use. Continue to monitor K+ level. Inc. at times.
--- NOTE | 2016-11-09 02:38 | NUR ---
Significant Event:Alert to self and place. Reorient to time and city. 1 assist with gait belt ans walker. VSS on room air. Meds whole a couple at a time. ALARMS at all times. Patient impulsive. Restless. Tries getting out of bed and chair by himself. Currently in bed, awake. Alarm on. Call light in reach. Follow up:Near miss 11/08 @ 2200 patient got out of bed on his own to get into recliner. Bed alarm sounding and this nurse saw him stumble and land across the recliner, as I entered the room. With the assist of another nurse, patient was settled into recliner. Call light within reach. alarm on.
[2016-11-09 05:57] LABS: ALBUMIN 3.4 gm/dL (3.5-5.0); BLOOD UREA NITROGEN 15 mg/dL (6-24); CALCIUM 8.9 mg/dL (8.5-10.5); CHLORIDE 112 mMol/L (96-110); CO2 25 mMol/L (22-32); CREATININE 0.9 mg/dL (0.6-1.3); ESTIMATED GFR (MDRD EQUATION) > 60; MAGNESIUM 2.3 mg/dL (1.8-2.6); PHOSPHORUS 2.7 mg/dL (2.5-4.9); SODIUM 145 mMol/L (135-145)
--- NOTE | 2016-11-09 10:31 | NUR ---
A-NUTRITION F/U CBW (STANDING WT): 93.7 KG. ADMIT WT: 96.2 STACIE (STANDING WT) LABS: GLU 111, ALB 3.4, PREALB 19.0; PREALB DOWN FROM 23.0 ON 10/26 VISITED TODAY W/PT RE: APPETITE AND SUPPLEMENTS. PT REPORTS HIS APPETITE IS "SO-SO." HE DOES LIKE THE MAGIC UP; PREFERS CHOCOLATE OVER VANILLA. PT STATES UBW AT 170 LBS (77.3 KG). DIET RX: CARDIAC/MECHANICAL SOFT DIET. MAGIC CUP BID. PO INTAKE HAS BEEN BITES-50%. EST NUTR NEEDS: [id number] KCALS AND 77-96 GM PROTEIN D-AT NUTRITION RISK W/INADEQUATE INTAKE OF NUTRIENTS R/T DECREASED APPETITE AEB PT REPORT, WT LOSS, AND INTAKE RECORDS I-1)CHANGE MAGIC CUP TO CHOCOLATE FLAVOR ONLY 2)ADD CHOCOLATE ENSURE PUDDING AT BRK 3)ENCOURAGE PO INTAKE OF BOTH MEALS AND SUPPLEMENTS M/E-GOAL: PO INTAKE >/=50% BY NEXT F/U 1)F/U PO INTAKE, SUPPLEMENT, WT, AND POC IN 3-5 DAYS 2)ASSIST NEEDED
--- NOTE | 2016-11-09 16:32 | NUR ---
D: TR progress note for 11/09/16. I: Pt seen for 2 units at 1430 for cognitive task, scanning, motor skills, sequencing, coordination and coping strategies. R: Pt seen for functional skills building working on sequencing, cognition task, motor skills, and coordination using playing cards to increase independence with decision making and attention to task. Pt completed card game "jacks R wild" with min > mod cues for game's strategy along with visual cue aide. Pt demonstrated fair motor skills utilizing BUE with fair attention to task and visual scanning. Education continued on utilization of leisure to promote recovery and for coping. P: Will continue to see to address goals and plan of care.
--- NOTE | 2016-11-09 17:52 | NUR ---
Significant Event:PATIENT ALERT BUT IS DISORIENTED TO PLACE AND TIME. HAS BEEN IN [employer] TODAY AND JOKING AT TIMES. REPORT RECEIVED OF HIM BEING AGRESSIVE YESTERDAY. HAS DENIED PAIN. VSS. TRANSFERS WITH 1 ASSIST, GAIT BELT AND WALKER. IS VERY UNSTEADY ON HIS FEET AND LEFT FOOT DRAGS AT TIMES. DID AN MRI THIS AFTERNOON FOR FURTHER INVESTIGATION OF CHANGES IN MENTAL STATUS. TOLERATED WELL. FAMILY HERE AT BEDSIDE. NO OTHER COMPLAINTS. Follow up:
--- NOTE | 2016-11-10 04:10 | NUR ---
Patient alert and oriented to person. Disoriented to time and place. Transfers 1A GB/Walker. Incontinent at times. Forgetful/Impulsive, Alarms on. Takes pills whole with water. Daughter shaved and trimmed hair this evening. Family brought in supper and patient ate most of it. Slept on and off throughout the night. Cooperative with cares.
[2016-11-10 06:27] LABS: ALBUMIN 3.5 gm/dL (3.5-5.0); ALK PHOS 122 IU/L (33-138); ALT 25 IU/L (12-78); AST 63 IU/L (10-40); BLOOD UREA NITROGEN 19 mg/dL (6-24); CALCIUM 8.9 mg/dL (8.5-10.5); CHLORIDE 112 mMol/L (96-110); CO2 26 mMol/L (22-32); ESTIMATED GFR (MDRD EQUATION) > 60; POTASSIUM 3.8 mMol/L (3.7-5.1); TOTAL PROTEIN 6.7 g/dL (6.0-8.4)
[2016-11-10 06:33] LABS: ANION GAP 11.8 (10.0-19.0); SODIUM 146 mMol/L (135-145); TOTAL BILIRUBIN 0.6 mg/dL (0.0-1.5)
--- NOTE | 2016-11-10 11:47 | NUR ---
D: TR progress note for 11/10/16. I: Pt seen for 2 units at 1100 in group session for education on relaxation techniques, stress/pain management, coping strategies, group participation and leisure education. R: Pt seen for functional skills building working on relaxation techniques, stress/pain management, continued education on coping skills and sleep to promote recovery. Pt completed functional social communication skills independently which involved personal introduction of self and identification of past favorite Springtime activity. Education completed by verbal discussion and modeling on the signs and symptoms the physical stress/pain can cause on the body and it's affects along with identification of coping strategies, relaxation techniques using music, playaways, aromatherapy, labyrinthi, breathing exercises and leisure activities. Pt needed cues to remain alert. P: Will continue to see to address goals and plan of care.
--- NOTE | 2016-11-10 16:22 | NUR ---
Significant Event:PATIENT ALERT BUT IS DISORIENTED TO TIME AND PLACE. COMPLAINS OF NOT FEELING WELL TODAY AND HAS NOT EATEN MUCH. WAS STARTED ON MEGACE SO WILL MONITOR EATING. VSS. TRANSFERS WITH 1 ASSIST, GAIT BELT AND WALKER. NEEDS LOTS OF DIRECTION. RESTS IN BED BETWEEN THERAPIES. HAS DENIED PAIN ALL SHIFT. NO OTHER COMPLAINTS. Follow up:
--- NOTE | 2016-11-11 04:50 | NUR ---
Patient alert and oriented to self. Disoriented to time and place. Impulsive/forgetful at times. Transfers 1A gb/walker. Got up X1 during the night and was joking around a lot and wasnt able to keep on task. Family wondering about checking into getting diet changed so he is able to eat more food. Tylenol given at bedtime. Cooperative with cares.
--- NOTE | 2016-11-11 13:08 | NUR ---
Significant Event: PATIENT UP 1 ASSIST, WALKER, GAIT BELT. DISORIENTED TO PLACE/TIME/SITUATION. NEEDS CUEING. ALARMS AT ALL TIMES. FELL ON 11/07. NEEDS REDIRECTION OFTEN IN ORDER TO COMPLETE TASKS. HAZARDOUS MED PRECAUTIONS. 1 ASSIST, WALKER, GAIT BELT, HANDS ON AT ALL TIMES. VITALS STABLE ON ROOM AIR. Follow up:
--- NOTE | 2016-11-11 14:45 | NUR ---
D: Optical Glass Inspector Team Conference Follow up for 11/09/16 I: Input from patient/family R: Met with: patient, , children, Dr. Elmore, Sonya Napoles DIESEL ENGINE II PIPE FITTER Discussed rehab plan, patient progress, discharge plan and estimated length of stay of d/c planned to SNF when placement can be secured. Patient/Family Preference: Patient's family were very concerned and worried that his dementia is worse. They are in agreement with working on placement at [facility] in [place]. Anticipated discharge disposition: [facility] SNF. Education completed: Education was completed with patient regarding length of stay, progress in therapy and d/c plan. Assessment/Recommendation: Team recommends d/c to SNF. P: Case Coordination: Nii is an 86 year old man from [place], [place] admitted after a stroke. He has a prior history of dementia. Plan is to d/c to SNF. Referral made to [facility] in [place]. Will follow.
--- NOTE | 2016-11-12 00:30 | NUR ---
Incontinent of moderate amount urine. Up to bathroom with walker and 1 assist. Voided small amount. returned to bed. Bed alarm on.
--- NOTE | 2016-11-12 03:31 | NUR ---
Significant Event: Denies pain. disoriented to time and place. up every 2-3, was incontinet of urine prior to getting up. alarms on at all times. do not leave patient alone while in bathroom. buttocks reddened, aloe vesta applied. has slept well for short intervals. Follow up:
--- NOTE | 2016-11-12 08:50 | NUR ---
A-NUTRITION F/U NO NEW WT SINCE LAST F/U LABS (11/10)-NA 146, K+ 3.8, GLU 125, BUN 19, FINANCE CLERK 1.0, ALB 3.5 MEDS: MEGACE STARTED 11/10 DIET RX: CARDIAC/MECHANICAL SOFT DIET. CHOCOLATE MAGIC CUP BID AND ENSURE PUDDING QD. PO INTAKE BITES-50%. REFUSING SUPPLEMENTS AT TIMES. EST NUTRITION NEEDS: [id number] KCALS AND 77-96 GM PROTEIN D-AT NUTRITION RISK W/INADEQUATE NUTRIENT INTAKE R/T POOR APPETITE AEB INTAKE RECORDS, PT REPORT, AND WT LOSS. I-1)D/C CHOCOLATE ENSURE PUDDING AT BRK. 2)CONTINUE CHOCOLATE MAGIC CUPS BID 3)OFFER CHOCOLATE ENSURE COMPACT AT BRK 4)RECOMMEND LIBERALIZING DIET FROM CARDIAC TO REGULAR, SO PT WILL HAVE MORE FOOD CHOICES. M/E-GOAL: PO INTAKE >/=50% BY DISCHARGE 1)F/U DIET RX, PO INTAKE, SUPPLEMENT, WT, LABS, AND POC IN 4-6 DAYS 2)ASSIST NEEDED
--- NOTE | 2016-11-12 08:54 | NUR ---
PO INTAKE IS POOR; REFUSALS-50%. CURRENT DIET RX IS CARDIAC/MECHANICAL SOFT. RECOMMEND LIBERALIZING DIET TO REGULAR/MECH. SOFT SO PT WILL HAVE MORE FOOD CHOICES.
--- NOTE | 2016-11-12 16:55 | NUR ---
Significant Event:PATIENT ALERT BUT IS DISORIENTED TO PLACE AND TIME. VSS. TRANSFERS WITH 1 ASSIST, GAIT BELT AND WALKER. IS UNSTEADY AT TIMES. STATED SEVERAL TIMES TODAY THAT HE JUST DIDN'T HAVE IT IN HIM TODAY TO DO ANYTHING AND WAS VERY TIRED. HAS DENIED PAIN. RESTED BETWEEN THERAPIES. REPORTED HE DIDN'T SLEEP VERY WELL. NO OTHER COMPLAINTS. Follow up:
--- NOTE | 2016-11-13 03:44 | NUR ---
Significant Event:Up with 1-2 assist, walker, gait belt. Unsteady gait. Forgetful, asks same questions repeatedly. Unawares of date or month--oriented to self. Son came to visit. Dtr Aarti is bringing him lunch today. Given tylenol at 0229 as unable to sleep soundly and did say he was aching all over--somewhat effective. Incontinent of urine x 2 of lrg amts. Last bm yest on day shift. Oral intake 520 ml. Follow up:Bed/niko alarm to be used. Aloe to buttocks r/t redness.
--- NOTE | 2016-11-13 14:57 | NUR ---
Significant Event: Pt up in room with walker, 1 assist, sl. unsteady, javi. well. Pt remains confused at times, alarms in use at all times. Pt fairly cooperative with cares. Pt did not "feel" like eating at lunch, so daughter fed him and he ate well. Needs enc. for self cares and eating. Continues to be inc. at times of urine. Follow up: safety, activity, skin cares
--- NOTE | 2016-11-14 01:47 | NUR ---
PATIENT HAS BEEN UNALBE TO SLEEP. CONTINUES TO WONDER WHERE FAMILY IS. REMINDED PATIENT FAMILY MEMBER HAD BEEN HERE EARLY IN DAY BUT HAD GONE HOME EARLY. INCONTINENT OF URINE. UP TO BATHROOM TO VOID. NO VOID. TYLENOL 650 MG GIVNE TO PATIENT FOR RESTLESSNESS. AROMATHERAPY AT BEDSIDE TO AID IN RELIEVING ANXIETY.
--- NOTE | 2016-11-14 05:45 | NUR ---
Significant Event: denies pain, did give tylenol at 147 for restlessness. was able to fall asleep for short intervals. has been anxious about his family not being here. up to bathroom with walker and 1 assist. has been inconintent of urine. does not void when up. Follow up:
--- NOTE | 2016-11-14 16:08 | NUR ---
Significant Event:PATIENT ALERT AND ORIENTED THIS SHIFT. VSS. TRANSFERS WITH 1 ASSIST, GAIT BELT AND WALKER. HAS BEEN INCONTINENT OF URINE TODAY. PANTS CHANGED ONCE THIS AFTERNOON. HAS BEEN CONFUSED AT TIMES TODAY. WAS TRYING TO GET OUT OF BED THIS AM TO GET HIS UP ON THE OTHER SIDE OF THE ROOM. HAD TO REORIENT HIM THAT HE WAS IN THE HOSPITAL AND THAT HIS WAS NOT HERE AT THE TIME. DID GET UPSET WITH NURSE. ONCE HE WAS UP AND DRESSED HE WAS BETTER FOR THE MOST PART. TOOK MEDS WHOLE IN PUDDING AND DOES WELL WITH THAT. DOES NOT LIKE THE APPLESAUCE. HAS DENIED PAIN ALL SHIFT. DAUGHTER BROUGHT HIM IN LUNCH. HAS NOT EATEN MUCH ALL DAY. TRIED TO ENCOURAGE HIM BUT REFUSES TO EAT MUCH. RESTED IN BED OR IN THE RECLINER MOST OF THE DAY BETWEEN MEALS. HAS NOT USED CALL LIGHT MOST OF THE DAY. ALARMS ON AT ALL TIMES. NO OTHER COMPLAINTS. Follow up:
--- NOTE | 2016-11-15 05:45 | NUR ---
Significant Event: was inappropriate with staff at beginning of shift, agitated. patient took nap for about 2 hours and appropriate after that. denied pain. disoriented to time. up to bathroom with assist of 1 and walker. slightly unsteady gait. needs reminders to slow down. incontinent at times. reported he had bm, not observed. slept for short intervals. Follow up:
[2016-11-15 06:36] LABS: BASOPHIL # 0.1 K/uL (0.0-0.2); BASOPHIL % 0.4 %; EOSINOPHIL # 0.2 K/uL (0.0-0.5); EOSINOPHIL % 1.5 %; HEMATOCRIT 43.1 % (33.0-50.0); HEMOGLOBIN 14.6 g/dL (11.0-16.0); IMMATURE GRANULOCYTE # 0.1 K/uL (0.0-0.3); IMMATURE GRANULOCYTE % 0.8 %; LYMPHOCYTE # 4.5 K/uL (0.8-4.0); LYMPHOCYTE % 38.2 %; MCH 31.3 pg (27.0-34.0); MCHC 33.9 gm/dL (32.0-36.5); MCV 92.5 fl (83.0-98.0); MONOCYTE # 0.5 K/uL (0.0-1.0); MONOCYTE % 4.5 %; MPV 10.5 fl (9.4-12.4); NEUTROPHIL # (ANC) 6.5 K/uL (1.4-9.0); NEUTROPHIL % 54.6 %; NRBC % 0 /100WBC (0-0.00); RBC 4.66 M/uL (3.50-5.50); RDW-CV 13.8 % (11.9-14.6); WBC 11.9 K/uL (4.0-11.0)
[2016-11-15 07:02] LABS: ALBUMIN 3.5 gm/dL (3.5-5.0); ALK PHOS 101 IU/L (33-138); ALT 25 IU/L (12-78); BLOOD UREA NITROGEN 20 mg/dL (6-24); CALCIUM 8.5 mg/dL (8.5-10.5); CHLORIDE 112 mMol/L (96-110); CREATININE 1.1 mg/dL (0.6-1.3); ESTIMATED GFR (MDRD EQUATION) > 60; SODIUM 142 mMol/L (135-145); TOTAL PROTEIN 6.7 g/dL (6.0-8.4)
[2016-11-15 07:06] LABS: ANION GAP 17.4 (10.0-19.0); AST 31 IU/L (10-40); CO2 17 mMol/L (22-32); POTASSIUM 4.4 mMol/L (3.7-5.1); TOTAL BILIRUBIN 0.9 mg/dL (0.0-1.5)
[2016-11-15 07:30] LABS: PLATELET COUNT 162 K/uL (150-450)
--- NOTE | 2016-11-15 12:06 | NUR ---
Significant Event:Pt continues to transfer with 1 assist, walker/gait belt. Sometimes responds in conversation with a wink of the eye or a smile, has some periods of confusion. has not visited as of this time. Pt took meds 1-2 @ a time with water only per his request, and no complications. Eats meals in dining room, check frequently. Alarms on @ all times. Rests during the day in recliner or chair. Pt has been cooperative with plan of care @ this time. No complaints of pain as of this time. Follow up:monitor confusion, fall @ risk, monitor pain control.
--- NOTE | 2016-11-15 19:50 | NUR ---
PATIENT TRANSFERS WITH 1 ASSIST, GAIT BELT AND WALKER, TRIPS ON WHEELCHAIR FRONT WHEEL AND LANDED IN RECLINER ON LEFT SIDE WITH ASSIST OF NURSE. NO INJURY NOTED, DENIES C/O PAIN. FAMILY PRESENT IN ROOM.
--- NOTE | 2016-11-16 03:51 | NUR ---
Significant Event: denies pain this shift. tripped. on front wheelchair wheel while transferring from wheelchair to recliner, landed on his left side with assit into seat of recliner. family present at time. behavior inappropriate with staff at times., pinching at staff with smile on his face. does not always listen to staff with gait training instructions. needs reminders to slow down, medicinal plant picker feet and not let walker get so far ahead of him. daughter reports to staff he is going to [facility] on tuesday. Follow up:
--- NOTE | 2016-11-16 14:03 | NUR ---
D: TR progress note for 11/16/16. I: Pt seen for 2 units for 1302 leisure education, cognitive thinking task, fine motor skills, coping skills and scanning. R: Pt seen for functional skills building working on cognitive thinking skills, visual scanning, recall, BUE coordination and fine motor skills using card to increase independence with leisure task. Pt's spouse and friend present for session, education done on use of leisure to promote recovery and for coping with lifestyle changes. Pt able to identify playing cards at 100% accuracy on numbers/suits and could sort in suits with 99% accuracy with continues cues to remain on task and extra time allotted. Pt utilizing BUE with fair > good coordination and good scanning moving across tabletop. P: Will continue to see to address goals and plan of care.
--- NOTE | 2016-11-16 14:34 | NUR ---
Significant Event:Alert, Oriented to self and confused about place and time. "Joking" alot, but is not cooperative with cares all the time. Impulsive and tries to get out of bed without calling staff. Remains on room air. Tolerating PO fluids and nutrition. Eating about 50% of all meals, with sitting up meals and encouraging to eat. Incontinent of bladder and bowel, frequent incontinence garment changes. Family is supportive at the bedside. changes Follow up:[facility] tomorrow.
--- NOTE | 2016-11-17 02:14 | NUR ---
Significant Event:Alert to self. Occassionaly alert to time and place. Alarms at all times r/t impulsivity and condusion. REapproach with assistance for cares. Unble to use urinal at bedside. 1-2 assist transfer with walker and gaitbelt.Tylenol for discomfort. call light within reach, bed alarm on. Follow up:Moving to [facility] tomorrow
--- NOTE | 2016-11-17 10:13 | NUR ---
Significant Event:PATIENT ALERT BUT IS DISORIENTED TO PLACE AND TIME. SEEMS MORE ALERT TODAY THAN PREVIOUS BUT IS MORE UNSTEADY. LOST HIS BALANCE WHEN DRESSING BUT WAS ABLE TO REGAIN. ATE A GOOD BREAKFAST TODAY COMPARED TO NORMAL. TAKES MEDS WHOLE WITH PUDDING AND DOES FAIR. HAS LOTS OF TROUBLE WITH HIS JUICE PLUS. WOULD RECOMMEND OPENING AND POURING INTO HIS PUDDING TO MAKE IT EASIER TO TAKE. FAMILY HERE AND READY TO TAKE PATIENT TO [facility]. VSS. TRANSFERS WITH 1 ASSIST, GAIT BELT AND WALKER. DENIES PAIN. COOPERATIVE WITH CARES. NO OTHER COMPLAINTS. Follow up:
--- NOTE | 2016-11-17 11:02 | NUR ---
Significant Event:PATIENT DC'D TO [facility] VIA WHEELCHAIR TO PRIVATE VEHICLE WITH FAMILY. CALL PLACED TO NURSE BUT WAS IN A MEETING SO SHE IS TO CALL BACK FOR REPORT. Follow up:
--- NOTE | 2016-11-21 11:39 | NUR ---
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 Patient/Family Preference: patient is unhappy about this. Family plans to transport. Anticipated discharge disposition: SNF Education completed: Education was completed with patient and family regarding length of stay, progress in therapy and d/c plan. Plan is d/c on 11/17/16 to [facility]. ID screen completed. Assessment/Recommendation: Team is recommending d/c to SNF level of care. P: Case Coordination: Nii is an 86 year old man from [place], [place] admitted after a stroke. He has good family support. Will call patient's family next week to see how he is adjusting to SNF.
[2017-01-31] MEDS ORDERED: PLAVIX75 MG PO (09:57)
[2017-01-31] MEDS ORDERED: DONEPEZIL HCL10 MG PO (09:58)
[2017-01-31] MEDS ORDERED: HYDRODIURIL25 MG PO (09:58)
[2017-01-31] MEDS ORDERED: COZAAR100 MG PO (09:59)
[2017-01-31] MEDS ORDERED: MIRALAX17 GM PO (10:00)
[2017-01-31] MEDS ORDERED: K-TAB ER20 MEQ PO (10:00)
[2017-01-31] MEDS ORDERED: VITAMIN D5000 UNIT PO (10:01)
[2017-01-31] MEDS ORDERED: AVODART0.5 MG PO (10:02)
[2017-01-31] MEDS ORDERED: ROPINIROLE HCL1 MG PO (10:02)
[2017-01-31] MEDS ORDERED: COLACE100 MG PO (10:03)
[2017-01-31] MEDS ORDERED: DULCOLAX10 MG R (10:03)
[2017-01-31] MEDS ORDERED: MILK OF MAGN400 ML PO (10:04)
[2017-01-31] MEDS ORDERED: TYLENOL325 MG PO (10:06)
[2017-01-31] MEDS ORDERED: ZYPREXA2.5 MG PO (10:10)
[2017-01-31] MEDS ORDERED: AQUAPHOR TOP (10:10)
[2017-01-31] MEDS ORDERED: [UNRECOGNIZED DRUG - OTHER] TOP (10:10)
[2017-01-31] MEDS ORDERED: ATIVAN 0.5MG0.5 MG PO (10:11)
[2017-01-31] MEDS ORDERED: BUSPIRONE HCL15 MG PO (10:13)
[2017-01-31] MEDS ORDERED: ZOLOFT100 MG PO (10:13)
[2017-01-31] MEDS ORDERED: OXYGEN M-15 INH (10:16)
[2017-01-31] MEDS ORDERED: JUICE PLUS FRUIT PO (10:34)
[2017-01-31] MEDS ORDERED: JUICE PLUS VEGETABLE PO (10:35)
== END 2016-11-17 10:51 | DRG 64 ==
LOC: GIRP 11:26
PROVIDERS: Internal Medicine; Physical Medicine & Rehabilitation; ADMIT Orthopaedic Surgery
DX: I63.9 Cerebral infarction, unspecified (principal); G04.81 Other encephalitis and encephalomyelitis; F03.90 Unspecified dementia, unspecified severity, without behavioral disturbance, psychotic disturbance, mood disturbance, and anxiety; F05 Delirium due to known physiological condition; G81.94 Hemiplegia, unspecified affecting left nondominant side; R41.89 Other symptoms and signs involving cognitive functions and awareness; R26.81 Unsteadiness on feet; Z74.1 Need for assistance with personal care; I10 Essential (primary) hypertension; N40.0 Benign prostatic hyperplasia without lower urinary tract symptoms; I25.10 Atherosclerotic heart disease of native coronary artery without angina pectoris; G25.81 Restless legs syndrome

== ENCOUNTER → 2017-01-24 | Outpatient (CLI) | payer MEDICARE, OTHER ==
[~2017-01-24] MED LIST changes: +AQUAPHOR TOP; +ATIVAN 0.5MG0.5 MG PO; +AVODART0.5 MG PO; +BUSPIRONE HCL15 MG PO; +DONEPEZIL HCL10 MG PO; +DULCOLAX10 MG R; +HYDRODIURIL25 MG PO; +JUICE PLUS FRUIT PO; +JUICE PLUS VEGETABLE PO; +K-TAB ER20 MEQ PO; +MILK OF MAGN400 ML PO; +MIRALAX17 GM PO; +OXYGEN M-15 INH; +PLAVIX75 MG PO; +TYLENOL325 MG PO; +VITAMIN D5000 UNIT PO; +ZOLOFT100 MG PO; +ZYPREXA2.5 MG PO; +[UNRECOGNIZED DRUG - OTHER] TOP
== END | disposition disaster alternative care site (69) ==
LOC: GRAD 08:54
DX: J32.4 Chronic pansinusitis (principal); R93.8 Abnormal findings on diagnostic imaging of other specified body structures

== ENCOUNTER 2017-02-03 07:30 | Observation (INO) | payer MEDICARE, OTHER ==
[~2017-02-03] VITALS: Ht 154.9 cm; Wt 89.4 kg
--- NOTE | ~2017-02-03 | OR ---
PATIENT'S NAME: JESSICA [facility]IM [facility] AGE: 87 Y [address] ROOM: [place] [address] LOC[place]: [facility] [place] DATE: 02/03/2017 OR/Procedure Report DISCHARGE DATE: FAMILY PHYSICIAN: Valdemar Jarrell MD ATTENDING PHYSICIAN: CHUY SIFUENTES SURGEON: Chuy Sifuentes MD LEAF SUCKER OPERATOR: None. 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 POSTOPERATIVE DIAGNOSES: 1. Sinonasal inverted papilloma. 2. Chronic pansinusitis. PROCEDURE PERFORMED: 1. Functional endoscopic sinus surgery including bilateral frontal sinusotomies with tissue removal. 2. Bilateral total ethmoidectomies. 3. Bilateral maxillary sinusotomies with tissue removal. 4. Bilateral sphenoid sinusotomies. 5. Excision of bilateral nasal masses. 6. Propel stent placement bilaterally into the frontal sinuses. 7. Stealth navigation. ANESTHESIA: General endotracheal. COMPLICATIONS: None. BLOOD LOSS: 200 mL. FINDINGS: 1. Large polypoid nasal mass in the left nasal cavity adherent to the roof of the nasal cavity anteriorly. 2. Similar mass, but smaller, noted in the right nasal cavity adherent to the nasal roof and cribriform area. 3. Chronic pansinusitis found within all sinuses. 4. Evidence of previous surgery on the right side including a previous partial middle turbinate resection, maxillary antrostomy, partial ethmoidectomy, and sphenoid sinusotomy. INDICATION FOR PROCEDURE: The patient is an 87-year-old male, who had a large left nasal mass causing nasal obstruction. Biopsy showed sinonasal inverted PATIENT'S NAME: JESSICA KIM [facility] AGE: 87 Y [address] ROOM: [place] [address] [place] [facility] [place]: 02/03/2017 OR/Procedure Report DISCHARGE DATE: FAMILY PHYSICIAN: Valdemar Jarrell MD ATTENDING PHYSICIAN: CHUY SIFUENTES. We discussed multiple options for treatment with him and his family, and ultimately elected for endoscopic removal with minimization of potential for complications, especially cranial complications. They therefore provided informed consent. DESCRIPTION OF PROCEDURE: The patient was brought from the preoperative area to the operating suite and placed on the table in a supine position. All pressure points were padded. Time-out was performed correctly identifying the patient and the procedure. General endotracheal anesthesia was initiated. The [employer] navigation system was applied and calibrated. The patient was prepped and draped in a clean fashion. The nose had been previously prepped with Afrin- soaked pledgets bilaterally with difficult placement on the left due to nasal mass as well as injection of 1% lidocaine with epinephrine along the angular arteries and sublabial artery. After removal of the Afrin pledgets, the endoscope was used for visualization on the left side. The mass completely filled the nasal cavity and was cut near its root superiorly across and taken out as a single specimen. The remaining polypoid mass that proceeded superiorly along the nasal septum and medial portion of the middle turbinate was taken up all the way to the nasal cavity roof of the cribriform plate with powered instrumentation, and this was taken across all the way anteriorly to the nasal beak. We then proceeded with sinus surgery in a more routine fashion medializing the middle turbinate and injecting 1% lidocaine with epinephrine along the sphenopalatine artery, inferior middle turbinates, and middle turbinate insertion. A wide maxillary antrostomy was created with a combination of sharp and powered instrumentation and purulent material as well as thick mucus were removed as well as some thickened mucosa membranes. Total ethmoidectomy was then performed in a standard fashion without identification of any further nasal mass. A wide sphenoid os was created as well, and tissue removed from the sphenoid sinus. Coming back along the skull base with angled endoscope, the skull base was cleaned off to the level of the frontal sinus. An Entellus frontal sinus balloon was used for identification initially of the frontal sinus, and this was widened with the balloon. After removal of the balloon, complete Draf IIB type frontal sinusotomy was created on this left side. This was carried across the insertion of the middle turbinate to the area previously noted for the nasal mass. This area was cleaned off completely using the [employer] navigation for guidance. We confirmed that the nasal mass adherent to the roof was along the thinnest portion of the cribriform plate. Therefore, no further debridement or resection was performed in this area due to the risk of creation of a CSF leak here. There appeared to be no obvious place where the mass was crossing the midline. Nasal pledgets were placed. We turned our attention to the right side. A polypoid mass was again identified as described above in the high nasal cavity. This was resected with sharp instrumentation and thereafter with powered instrumentation to the level of the nasal roof. On this side, there was evidence of previous surgery with a large portion of the mid portion of the middle turbinate previously resected PATIENT'S NAME: JESSICA [facility] AGE: 87 Y [address] ROOM: [place] [address] [place] [facility] [place]: 02/03/2017 OR/Procedure Report DISCHARGE DATE: FAMILY PHYSICIAN: Valdemar Jarrell MD ATTENDING PHYSICIAN: CHUY SIFUENTES with dense scar adherent to the uncinate process on the right side. The previous maxillary antrostomy was present, but scarred down. Scar bands were released and the middle turbinate medialized. Standard injections were once again performed with 1% lidocaine with epinephrine. A revision right maxillary antrostomy, total ethmoidectomy, and sphenoid sinusotomy were then performed removing all areas of scar tissue and widening the os. Tissue was removed from each sinus. Carrying this forward along the skull base, the skull base was once again cleared to the level of the frontal sinus. This was widened in a Draf IIB type procedure using the angled endoscope for guidance. Once again, powered instrumentation was used to remove all evidence of polypoid mass. However, on this side once again, the mass was densely adherent to the thinnest portion of the case the cribriform plate itself and, therefore, deep resection was not performed in this area. The mucosa was taken down to the level of the bone as much as possible. Once again, no crossing of the midline was identified of the nasal mass itself. Each side was irrigated and thoroughly cleansed. A 4-0 plain gut suture was used to medialize the middle turbinates with a mattressing fashion. Propel Contour was placed in the left frontal sinus and a Propel Mini on the right frontal sinus. NasoPore was then placed within the ethmoid cavities bilaterally and an OG passed into the belly, the belly was suctioned out of blood, and the patient was returned to the care of Anesthesia for extubation and transferred to the recovery room in stable condition. MD MARYLU JAIME/brendon /[id number] d: 02/03/177 t: 02/10/17 1047, OPERATIVE SUMMARY
--- NOTE | 2017-02-03 15:04 | NUR ---
Significant Event:Pt from PACU at 1320 after a FESS x8 to nasal cavity. confused and agitated upon arrival to floor. Fell asleep shortly after. VS stable. denies pain. Has a nasal drip pad below nostrils with scant dry blood noted. May have cardiac diet when awake, bedrest today and up POD #1. Family at bedside, no void yet, will monitor. Came from home with 2 small open sores to coccyx, needs repositioned frequently. On 2 liter O2. Follow up:
--- NOTE | 2017-02-04 04:18 | NUR ---
Patient is alert and oriented, confused at times. He was able to tell me his name and birthday, where he is from. He does not know where he is. Hx of stroke, mild L) sided weakness. Wheelchair bound but can stand, pivot and shuffle, 2 assist. VSS, on room air. Saline nasal spray at bedside and nasal rinse is in the med room. Incontinent of urine. IV is saline locked in L) forearm. Was a little restless at beginning of shift but has rested well since around 2300. Will probably be discharged today.
[2017-02-04 06:43] LABS: BASOPHIL % 0.2 %; EOSINOPHIL % 0.2 %; HEMOGLOBIN 11.6 g/dL (11.0-16.0); IMMATURE GRANULOCYTE % 0.3 %; LYMPHOCYTE # 3.5 K/uL (0.8-4.0); LYMPHOCYTE % 26.8 %; MCHC 34.6 gm/dL (32.0-36.5); MCV 96.5 fl (83.0-98.0); MONOCYTE # 0.7 K/uL (0.0-1.0); MPV 10.8 fl (9.4-12.4); NEUTROPHIL # (ANC) 8.7 K/uL (1.4-9.0); NEUTROPHIL % 67.5 %; NRBC % 0 /100WBC (0-0.00); PLATELET COUNT 136 K/uL (150-450); RDW-CV 15.1 % (11.9-14.6); WBC 12.9 K/uL (4.0-11.0)
[2017-02-04 06:46] LABS: HEMATOCRIT 33.5 % (33.0-50.0); MCH 33.4 pg (27.0-34.0); RBC 3.47 M/uL (3.50-5.50)
[2017-02-04 06:49] LABS: INR - (THERAPEUTIC) 1.12 (0.92-1.07); PROTIME 11.8 SECONDS (9.8-11.4)
[2017-02-04 06:59] LABS: ANION GAP 10.8 (10.0-19.0); CALCIUM 8.5 mg/dL (8.5-10.5); CREATININE 1.1 mg/dL (0.6-1.3); POTASSIUM 3.8 mMol/L (3.7-5.1)
--- NOTE | 2017-02-04 09:00 | NUR ---
RECEIVED REFERRAL THAT PATIENT CAN RETURN TO [facility] TODAY AND THAT HIS SON WILL BE HERE AT 1100 TO GET HIM. I NOTIFIED DIANNA AT [facility] AND INFORMED HER OF THIS. THEY ARE EXPECTING PATIENT. SHE WILL INFORM THE STAFF AND UPDATE THEM. I SPOKE TO THE CHARGE NURSE AND GAVE HER THE CONTACT NUMBER FOR NURSE TO NURSE.
--- NOTE | 2017-02-04 11:02 | NUR ---
Significant Event: Pt denies pain. Confused at times but pleasant, bed alarm on for safety. Up in chair with 2 assist. Tolerating food well. Inc of urine. Has 2 small sores on coccyx that were there prior to admission. Family at bedside. VS stable. Nose slightly swollen but no bloody drainage noted. Has been coughing up small old blood clots from nasal drainage that runs down his throat. Follow up:
== END 2017-02-04 11:11 ==
LOC: GSDC 07:30 → GMSU 07:30 → GSDC 09:00 → GMSU 13:15 → GSDC 13:16 → GMSU 02-04 11:11
PROVIDERS: ADMIT Otolaryngology
PROC: 8E09XBZ Computer Assisted Procedure of Head and Neck Region (ICD-10-PCS; principal; 2017-02-03)
PROC: 09BV4ZZ Excision of Left Ethmoid Sinus, Percutaneous Endoscopic Approach (ICD-10-PCS; 2017-02-03)
PROC: 09BW4ZZ Excision of Right Sphenoid Sinus, Percutaneous Endoscopic Approach (ICD-10-PCS; 2017-02-03)
PROC: 09BX4ZZ Excision of Left Sphenoid Sinus, Percutaneous Endoscopic Approach (ICD-10-PCS; 2017-02-03)
PROC: 09BQ4ZZ Excision of Right Maxillary Sinus, Percutaneous Endoscopic Approach (ICD-10-PCS; 2017-02-03)
PROC: 09BR4ZZ Excision of Left Maxillary Sinus, Percutaneous Endoscopic Approach (ICD-10-PCS; 2017-02-03)
PROC: 09BS4ZZ Excision of Right Frontal Sinus, Percutaneous Endoscopic Approach (ICD-10-PCS; 2017-02-03)
PROC: 09BT4ZZ Excision of Left Frontal Sinus, Percutaneous Endoscopic Approach (ICD-10-PCS; 2017-02-03)
PROC: 09BU4ZZ Excision of Right Ethmoid Sinus, Percutaneous Endoscopic Approach (ICD-10-PCS; 2017-02-03)
PROC: 8E09XBG Computer Assisted Procedure of Head and Neck Region, With Computerized Tomography (ICD-10-PCS; 2017-02-03)
DX: J32.4 Chronic pansinusitis (principal); I10 Essential (primary) hypertension; J33.9 Nasal polyp, unspecified; I25.10 Atherosclerotic heart disease of native coronary artery without angina pectoris; E78.00 Pure hypercholesterolemia, unspecified; Z95.1 Presence of aortocoronary bypass graft; Z86.73 Personal history of transient ischemic attack (TIA), and cerebral infarction without residual deficits; Z90.49 Acquired absence of other specified parts of digestive tract; Z79.899 Other long term (current) drug therapy; Z79.02 Long term (current) use of antithrombotics/antiplatelets; Z98.890 Other specified postprocedural states
CPT/HCPCS: A9270; C1726; C2625; G0378; J2001; J3301; J7030; J7120